=== PATIENT | male | born 1980 | race African-American/Black ===

== ENCOUNTER 2017-09-09 19:01 | Inpatient (IN) | payer OTHER ==
[~2017-09-09] VITALS: Ht 170.2 cm; Wt 70.0 kg
[~2017-09-09 19:01] MED LIST: IBUP-1105 PO; LEVE1TAB57 PO; NCDT21 TD
[2017-09-09 20:25] LABS: INR 1.1 (0.9-1.1); PTT PATIENT 27.7 SECONDS (21.0-31.0)
[2017-09-09 20:34] LABS: ALT/SGPT 34 U/L (12-78); AST/SGOT 20 U/L (15-37); BLOOD UREA NITROGEN 7 mg/dl (7-18); CARBON DIOXIDE 28 mmol/L (21-32); CREATININE 0.83 mg/dl (0.60-1.40); GLUCOSE 88 mg/dl (70-99); POTASSIUM 3.7 mmol/L (3.5-5.1); SODIUM 138 mmol/L (136-145)
[2017-09-09 20:37] LABS: ALKALINE PHOSPHATASE 98 U/L (45-117); TOTAL PROTEIN 7.3 gm/dl (6.4-8.2)
[2017-09-09 20:51] LABS: PHENYTOIN (DILANTIN) 33.6 mcg/mL (10-20)
[2017-09-09 21:08] LABS: BASO % 0.1 %; BASO ABS # 0.01 K/uL (0-0.2); EOS % 1.9 %; EOS ABS # 0.26 K/uL (0-0.5); HEMATOCRIT 41.1 % (42-52); HEMOGLOBIN 14.2 g/dL (14.0-18.0); IG# 0.05 K/uL (0.00-0.02); LYMPH % 16.4 %; LYMPH ABS # 2.25 K/uL (1.2-3.4); MEAN CELL VOLUME 92.2 fL (80-100); MEAN CORPUSCULAR HEMOGLOBIN 31.8 pg (25-34); MEAN CORPUSCULAR HGB CONC 34.5 g/dl (32-36); MEAN PLATELET VOLUME 12.3 fL (7.4-10.4); MONO % 7.9 %; MONO ABS # 1.09 K/uL (0.11-0.59); NEUT % 73.3 %; NEUT ABS # 10.07 K/uL (1.4-6.5); PLATELET COUNT 116 K/uL (130-400); RED CELL DISTRIBUTION WIDTH CV 13.3 % (11.5-14.5); RED CELL DISTRIBUTION WIDTH SD 45.1 fL (36.4-46.3); WHITE BLOOD COUNT 13.73 K/uL (4.8-10.8)
[2017-09-09] MEDS ORDERED: PHEN200C PO (21:36)
[2017-09-09] MEDS ORDERED: ACETAMINOPHEN 325 MG TAB PO PRN (21:45)
[2017-09-09] MEDS ORDERED: ONDANSETRON INJ 2 MG/ML 2 ML VIAL IV PRN (21:45)
--- NOTE | 2017-09-09 21:58 | History and Physical ---
History & Physical Date & Time of Service: Sep 09, 2017 at 21:45 Chief Complaint: Dilantin Overdose ,Palpitation Primary Care Physician: Neo SOSA History of Present Illness Source: patient He is a 36-year-old male WALLY and plantar with history of seizure disorder has been on Dilantin. He was on Keppra before. He does have a few Dilantin and Keppra in disposition. Around 5 PM today he took 4 of Dilantin and 2 of Keppra to keep his seizure under control. Sometimes he takes the medication without the knowledge of his provider. He complained palpitation and funny feeling in the head. From that point he was taken to the emergency room for further evaluation. He was noted to have a Dilantin level of 33.6. He was advised for admission. He denies to have any tremor any ataxia any headache blurred vision or diplopia. Past Medical/Surgical History Medical Problems: (1) Ataxia (2) Dilantin overdose (3) Dilantin toxicity (4) Seizure Family History No pertinent family history Social History Smoking Status: Former Smoker Drug Use: none Housing status: other Allergies Coded Allergies: No Known Allergies (Unverified , 10/05/15) Home Medications Scheduled Phenytoin Sodium Extended (Phenytek), 200 MG PO BID Review of Systems Cardiovascular: + palpitations Neurologic: + problem reported (Funny feeling in hesd) Endocrine: + fatigue Physical Exam Vital Signs Date Time Temp Pulse Resp B/P (MAP) Pulse Ox O2 Delivery O2 Flow Rate FiO2 09/09/17 21:10 76 16 124/84 98 Room Air 09/09/17 20:25 78 09/09/17 19:09 36.9 89 17 140/90 98 Room Air General Appearance: no apparent distress Head: normocephalic Eyes: normal inspection, PERRL, EOMI ENT: normal ENT inspection Neck: supple Respiratory/Chest: chest non-tender, lungs clear Cardiovascular: regular rate, rhythm, no edema Abdomen/GI: normal bowel sounds Genitourinary - Male: normal male genitalia Back: normal inspection Extremities/Musculoskelatal: normal inspection Neurologic/Psych: alert, normal mood/affect, normal reflexes, oriented x 3 Skin: normal color Diagnostics Laboratory Results Results Past 24 Hours Test 09/09/17 20:00 Range/Units White Blood Count 13.73 4.8-10.8 K/uL Red Blood Count 4.46 4.7-6.1 M/uL Hemoglobin 14.2 14.0-18.0 g/dL Hematocrit 41.1 42-52 % Mean Corpuscular Volume 92.2 80-100 fL Mean Corpuscular Hemoglobin 31.8 25-34 pg Mean Corpuscular Hemoglobin Concent 34.5 32-36 g/dl Platelet Count 116 130-400 K/uL Mean Platelet Volume 12.3 7.4-10.4 fL Neutrophils (%) (Auto) 73.3 % Lymphocytes (%) (Auto) 16.4 % Monocytes (%) (Auto) 7.9 % Eosinophils (%) (Auto) 1.9 % Basophils (%) (Auto) 0.1 % Neutrophils # (Auto) 10.07 1.4-6.5 K/uL Lymphocytes # (Auto) 2.25 1.2-3.4 K/uL Monocytes # (Auto) 1.09 0.11-0.59 K/uL Eosinophils # (Auto) 0.26 0-0.5 K/uL Basophils # (Auto) 0.01 0-0.2 K/uL RDW Standard Deviation 45.1 36.4-46.3 fL RDW Coefficient of Variation 13.3 11.5-14.5 % Immature Granulocyte % (Auto) 0.4 % Immature Granulocyte # (Auto) 0.05 0.00-0.02 K/uL Platelet Estimate DECREASED Red Blood Cell Morphology Unremarkable Prothrombin Time 11.2 9.0-12.0 SECONDS Prothromb Time International Ratio 1.1 0.9-1.1 Activated Partial Thromboplast Time 27.7 21.0-31.0 SECONDS Partial Thromboplastin Ratio 1.1 Sodium Level 138 136-145 mmol/L Potassium Level 3.7 3.5-5.1 mmol/L Chloride Level 107 98-107 mmol/L Carbon Dioxide Level 28 21-32 mmol/L Anion Gap 3.0 3-11 mmol/L Blood Urea Nitrogen 7 7-18 mg/dl Creatinine 0.83 0.60-1.40 mg/dl Est Creatinine Clear Calc Drug Dose 112.8 ml/min Estimated GFR () 129.4 Estimated GFR (Non- 111.6 BUN/Creatinine Ratio 8.4 10-20 Random Glucose 88 70-99 mg/dl Calcium Level 9.0 8.5-10.1 mg/dl Total Bilirubin 0.3 0.2-1 mg/dl Direct Bilirubin < 0.1 0-0.2 mg/dl Aspartate Amino Transf (AST/SGOT) 20 15-37 U/L Alanine Aminotransferase (ALT/SGPT) 34 12-78 U/L Alkaline Phosphatase 98 45-117 U/L Total Protein 7.3 6.4-8.2 gm/dl Albumin 4.0 3.4-5.0 gm/dl Salicylates Level 3.6 2.8-20 mg/dl Acetaminophen Level < 2 10-30 ug/ml Phenytoin (Dilantin) Level 33.6 10-20 mcg/mL Normal EKG (SR,70/min,no ST-T changes ,No QT prongation) Impression Assessment and Plan Dilantin overdose: Accidental overdose of Dilantin, He took double the dose of Dilantin and 2000 mg Keppra around 5 PM this afternoon. He is not supposed to take any Keppra but he had few in his position and plan to take it. No specific symptoms of Dilantin toxicity except palpitation Dilantin level was 33.6 and Tylenol level is normal. The [facility] was contacted and advised to have adequate IV fluid and recheck Dilantin every 4-6 hours. Seizure disorder: Has been on Dilantin 200 mg twice daily Was on Keppra before and that was stopped We will hold Dilantin until the level is normalized. DVT prophylaxis with Lovenox CODE STATUS-full In my clinical assessment the beneficiary meets criteria for 2 midnight admission. Resuscitation Status VTE Prophylaxis Will order VTE Prophylaxis: Yes
[2017-09-09] MEDS: ENOXAPARIN 40 MG/0.4 ML SYR SC SCH (22:30)
[2017-09-09 23:31] VITALS: BP 117/76; PULSE 58; TEMP 36.6; O2SAT 99; Ht 170.2 cm; Wt 70.0 kg
[2017-09-09] MEDS: NSS + 20MEQ KCL 1000ML 1,000 ML IV SCH (23:49)
[2017-09-09 23:59] VITALS: BP 116/79; PULSE 75; TEMP 37; O2SAT 99
--- NOTE | 2017-09-10 00:42 | EMERGENCY ROOM VISIT NOTE ---
History Report prepared by Adrienne: Romelia House Under the Supervision of: Dr. Shukri Gibbons M.D. First contact with patient: 19:30 Chief Complaint: OVERDOSE (INTENTIONAL) Stated Complaint: POSSIBLE OVERDOSE History of Present Illness The patient is a 36 year old male who presents to the Emergency Room with complaints of an episode of overdose around 1700 today. The patient comes from [facility]. He is on 2 Dilantin 100 mg and on 1 Keppra 1000 mg. Today, he forgot that he took his medications and took an extra dose. As a result, he took 4 Dilantin and 2 Keppra at 1700 today. He denies taking any other medications. He does not have any other complaints. I did obtain additional history from the from the [facility]. He stated that the patient told him that he took 8 Dilantin and 8 Keppra and so that is why he was sent here for evaluation. He stated that the patient was very contradictory in his statements in terms of timing and the number of pills. Source of History: patient Onset: 1700 Position: other (body) Symptom Intensity: 4 Dilantin, 2 Keppra Quality: other (overdose) Timing: other (episodic) Review of Systems See HPI for pertinent positives & negatives. A total of 10 systems reviewed and were otherwise negative. Past Medical & Surgical Medical Problems: (1) Dilantin overdose (2) Dilantin toxicity (3) Seizure Family History No pertinent family history Social History Smoking Status: Former Smoker Alcohol Use: none Drug Use: none Housing Status: other Current/Historical Medications Scheduled Phenytoin Sodium Extended (Phenytek), 200 MG PO BID Allergies Coded Allergies: No Known Allergies (Unverified , 10/05/15) Physical Exam Vital Signs Date Time Temp Pulse Resp B/P (MAP) Pulse Ox O2 Delivery O2 Flow Rate FiO2 09/09/17 21:10 76 16 124/84 98 Room Air 09/09/17 20:25 78 09/09/17 19:09 36.9 89 17 140/90 98 Room Air Physical Exam Constitutional: Vital signs reviewed. Eyes: Pupils are equal round reactive to light. Conjunctiva are noninjected. No nystagmus. ENT: Pharynx is clear without erythema or exudate. Mucous membranes are moist. Neck supple without meningeal signs. Respiratory: Clear to auscultation bilaterally. Breath sounds are equal bilaterally. Cardiovascular: Regular rate and rhythm. No rubs or gallops. GI: Soft, nondistended and nontender. Bowel sounds are present. Musculoskeletal: No peripheral edema. No lower extremity tenderness. Integumentary: No cyanosis. Neurological: The patient is awake and alert. No focal deficits. Psychiatric: Normal affect. Medical Decision & Procedures Laboratory Results 09/09/17 20:00 Red Blood Count 4.46, Mean Corpuscular Volume 92.2, Mean Corpuscular Hemoglobin 31.8, Mean Corpuscular Hemoglobin Concent 34.5, Mean Platelet Volume 12.3, Neutrophils (%) (Auto) 73.3, Lymphocytes (%) (Auto) 16.4, Monocytes (%) (Auto) 7.9, Eosinophils (%) (Auto) 1.9, Basophils (%) (Auto) 0.1, Neutrophils # (Auto) 10.07, Lymphocytes # (Auto) 2.25, Monocytes # (Auto) 1.09, Eosinophils # (Auto) 0.26, Basophils # (Auto) 0.01 09/09/17 20:00 Test 09/09/17 20:00 White Blood Count 13.73 K/uL (4.8-10.8) Red Blood Count 4.46 M/uL (4.7-6.1) Hemoglobin 14.2 g/dL (14.0-18.0) Hematocrit 41.1 % (42-52) Mean Corpuscular Volume 92.2 fL (80-100) Mean Corpuscular Hemoglobin 31.8 pg (25-34) Mean Corpuscular Hemoglobin Concent 34.5 g/dl (32-36) Platelet Count 116 K/uL (130-400) Mean Platelet Volume 12.3 fL (7.4-10.4) Neutrophils (%) (Auto) 73.3 % Lymphocytes (%) (Auto) 16.4 % Monocytes (%) (Auto) 7.9 % Eosinophils (%) (Auto) 1.9 % Basophils (%) (Auto) 0.1 % Neutrophils # (Auto) 10.07 K/uL (1.4-6.5) Lymphocytes # (Auto) 2.25 K/uL (1.2-3.4) Monocytes # (Auto) 1.09 K/uL (0.11-0.59) Eosinophils # (Auto) 0.26 K/uL (0-0.5) Basophils # (Auto) 0.01 K/uL (0-0.2) RDW Standard Deviation 45.1 fL (36.4-46.3) RDW Coefficient of Variation 13.3 % (11.5-14.5) Immature Granulocyte % (Auto) 0.4 % Immature Granulocyte # (Auto) 0.05 K/uL (0.00-0.02) Platelet Estimate DECREASED Red Blood Cell Morphology Unremarkable Prothrombin Time 11.2 SECONDS (9.0-12.0) Prothromb Time International Ratio 1.1 (0.9-1.1) Activated Partial Thromboplast Time 27.7 SECONDS (21.0-31.0) Partial Thromboplastin Ratio 1.1 Anion Gap 3.0 mmol/L (3-11) Est Creatinine Clear Calc Drug Dose 112.8 ml/min Estimated GFR () 129.4 Estimated GFR (Non- 111.6 BUN/Creatinine Ratio 8.4 (10-20) Calcium Level 9.0 mg/dl (8.5-10.1) Total Bilirubin 0.3 mg/dl (0.2-1) Direct Bilirubin < 0.1 mg/dl (0-0.2) Aspartate Amino Transf (AST/SGOT) 20 U/L (15-37) Alanine Aminotransferase (ALT/SGPT) 34 U/L (12-78) Alkaline Phosphatase 98 U/L (45-117) Total Protein 7.3 gm/dl (6.4-8.2) Albumin 4.0 gm/dl (3.4-5.0) Salicylates Level 3.6 mg/dl (2.8-20) Acetaminophen Level < 2 ug/ml (10-30) Phenytoin (Dilantin) Level 33.6 mcg/mL (10-20) Laboratory results as reviewed by me. ECG Per My Interpretation Indication: toxicologic Rate (beats per minute): 75 Rhythm: normal sinus Findings: other (early repolarization, no PVC, no QT prolongation) ED Course 1932: The patient was evaluated in room B4B. A complete history and physical exam was performed. 1943: I spoke with Wesley from [facility]. He say that the patient stated that he took 8 Dilantin and 8 Keppra and the doctor there was concerned and sent him here. 2099: I reevaluated the patient. He is having no symptoms. He has a little nasal congestion and occasional palpitations. He did have a PVC on the monitor. I reviewed the telemetry summary with the bus driver/monitor and found no abnormalities but PVC. 2109: Poison Control recommends normal saline and hospitalization to check levels every 6 hours. 2114: I discussed the patient's case with Cary Young hospitalkodi. He will evaluate the patient for further management. Medical Decision This is a 37-year-old male who presents with a drug overdose. I did perform a limited focused review of portions of the patient's old chart on the electronic medical record. The patient was admitted September 2015 for Dilantin toxicity. His level was 50 at the time and he had ataxia. I did evaluate the patient as noted above. I did obtain history from patient as well as the [facility]. He took an unknown amount of pills that were prescribed to him including Keppra and Dilantin. He stated that this was a mistake and not a suicide attempt. IV access was established. The patient was placed on a continuous cardiac specialist. I did order and personally review the patient's 12-lead EKG as described above. I did order and review the patient's blood work as noted in the electronic medical record. His phenytoin level is over 33. The case was discussed with poison control. They recommended hospitalization and recheck of his phenytoin levels every 4-6 hours. I did discuss the test results with the patient. He has no symptoms currently. He has no nystagmus. He is not dizzy. He did have a slight palpitation and had a PVC on the monitor. I did review the telemetry strips with the monitor tach and he has had no alarms or any unusual dysrhythmias. I did discuss case with the hospitalist and casework supervisor. Medication Reconcilliation Current Medication List: was personally reviewed by me Blood Pressure Screening Patient's blood pressure: Elevated blood pressure Blood pressure disposition: Referred to PCP Consults Time Called: 2111 Consulting Physician: Cary Young hospitalist Returned Call: 2114 I discussed the patient's case with him. He will evaluate the patient for further management. Impression Primary Impression: Medication overdose Additional Impression: Phenytoin overdose of undetermined intent Scribe Attestation The scribe's documentation has been prepared under my direct and personally reviewed by me in its entirety. I confirm that the note above accurately reflects all work, treatment, procedures, and medical decision making performed by me. Departure Information Dispostion Being Evaluated By Hospitalist Neo Valdes (PCP) Patient Instructions My [facility] Problem Qualifiers Primary Impression: Medication overdose Encounter type: initial encounter Injury intent: undetermined intent Qualified Codes: T50.904A - Poisoning by unspecified drugs, medicaments and biological substances, undetermined, initial encounter Additional Impression: Phenytoin overdose of undetermined intent Encounter type: initial encounter Qualified Codes: T42.0X4A - Poisoning by hydantoin derivatives, undetermined, initial encounter
[2017-09-10 04:00] VITALS: BP 108/73; PULSE 65; TEMP 36.9; O2SAT 97
[2017-09-10] MEDS: NSS + 20MEQ KCL 1000ML 1,000 ML IV SCH ×2 (06:37→14:36)
[2017-09-10 07:30] LABS: HEMATOCRIT 41.8 % (42-52); HEMOGLOBIN 14.2 g/dL (14.0-18.0); MEAN CELL VOLUME 93.9 fL (80-100); MEAN CORPUSCULAR HEMOGLOBIN 31.9 pg (25-34); MEAN PLATELET VOLUME 12.5 fL (7.4-10.4); PLATELET COUNT 127 K/uL (130-400); RED CELL DISTRIBUTION WIDTH CV 13.4 % (11.5-14.5); RED CELL DISTRIBUTION WIDTH SD 45.8 fL (36.4-46.3); WHITE BLOOD COUNT 8.73 K/uL (4.8-10.8)
[2017-09-10 07:41] VITALS: BP 120/74; PULSE 66; TEMP 36.6; O2SAT 100
[2017-09-10 07:53] LABS: CALCIUM 8.6 mg/dl (8.5-10.1); CREATININE 0.77 mg/dl (0.60-1.40); POTASSIUM 3.9 mmol/L (3.5-5.1)
[2017-09-10 11:37] VITALS: BP 120/70; PULSE 64; TEMP 36.8; O2SAT 99
[2017-09-10 15:52] VITALS: BP 99/63; PULSE 65; TEMP 36.9; O2SAT 98
--- NOTE | 2017-09-10 17:41 | Progress Note ---
Internal Med Progress Note Date of Service: Sep 10, 2017. Provider Documentation: SUBJECTIVE: resting comfortably says took extra dilantin as he thought he forgot to take it says in total took about 6-7 tablets extra and then felt funny feeling in the chest currently resting comfortably and hemodynamically stable says about 3 weeks ago he had major seizure after many years and he was stopped on Keppra and whis Dilantin was increased to 200mg bid currently denies chest pain or sob or nausea afebrile OBJECTIVE: Vital Signs-as noted below Exam: General-alert and oriented. Not in distress ENT-normal hearing. Neck-No neck masses Lungs-CTA b/l no wheezing or crackles Heart-S1 and S2 heard regular rate and rhythm no murmurs Abdomen-soft Bowels sounds present non tender no distension Extremities-no edema no erythema Neuro-alert and oriented moves extremities Lab data as noted below. ASSESSMENT & PLAN: Dilantin overdose: Accidental overdose of Dilantin, He took double the dose of Dilantin and 2000 mg Keppra around 5 PM yesterday which was stopped recently but have few in his possession says he felt like having seizure and thought forgot Dilantin and took about 6-7 extra tablets and latter had palpitations Dilantin level was 33.6 on presentation and Tylenol level is normal. Poison Center was contacted and advised to have adequate IV fluid and recheck Dilantin every 4-6 hours as pe h and p will f/u levels. Seizure disorder: currently on Dilantin 200 mg twice daily as per patient Was on Keppra before but was stopped after last seizures 3 weeks ago and Dilantin dose was increased We will hold Dilantin until the level is normalized. DVT prophylaxis with Lovenox DISPOSITION to be determined Vital Signs: Date Time Temp Pulse Resp B/P (MAP) Pulse Ox O2 Delivery O2 Flow Rate FiO2 09/10/17 16:00 Room Air 09/10/17 15:52 36.9 65 20 99/63 (75) 98 Room Air 09/10/17 12:00 Room Air 09/10/17 11:37 36.8 64 18 120/70 (87) 99 Room Air 09/10/17 08:00 Room Air 09/10/17 07:41 36.6 66 18 120/74 (89) 100 Room Air 09/10/17 04:00 Room Air 09/10/17 04:00 36.9 65 16 108/73 (85) 97 Room Air 09/09/17 23:59 Room Air 09/09/17 23:59 37.0 75 18 116/79 (91) 99 Room Air 09/09/17 23:31 36.6 58 18 117/76 99 Room Air 09/09/17 22:06 72 20 131/80 97 09/09/17 21:10 76 16 124/84 98 Room Air 09/09/17 20:25 78 09/09/17 19:09 36.9 89 17 140/90 98 Room Air Lab Results: Results Past 24 Hours Test 09/09/17 20:00 09/10/17 00:57 09/10/17 07:03 Range/Units White Blood Count 13.73 8.73 4.8-10.8 K/uL Red Blood Count 4.46 4.45 4.7-6.1 M/uL Hemoglobin 14.2 14.2 14.0-18.0 g/dL Hematocrit 41.1 41.8 42-52 % Mean Corpuscular Volume 92.2 93.9 80-100 fL Mean Corpuscular Hemoglobin 31.8 31.9 25-34 pg Mean Corpuscular Hemoglobin Concent 34.5 34.0 32-36 g/dl Platelet Count 116 127 130-400 K/uL Mean Platelet Volume 12.3 12.5 7.4-10.4 fL Neutrophils (%) (Auto) 73.3 % Lymphocytes (%) (Auto) 16.4 % Monocytes (%) (Auto) 7.9 % Eosinophils (%) (Auto) 1.9 % Basophils (%) (Auto) 0.1 % Neutrophils # (Auto) 10.07 1.4-6.5 K/uL Lymphocytes # (Auto) 2.25 1.2-3.4 K/uL Monocytes # (Auto) 1.09 0.11-0.59 K/uL Eosinophils # (Auto) 0.26 0-0.5 K/uL Basophils # (Auto) 0.01 0-0.2 K/uL RDW Standard Deviation 45.1 45.8 36.4-46.3 fL RDW Coefficient of Variation 13.3 13.4 11.5-14.5 % Immature Granulocyte % (Auto) 0.4 % Immature Granulocyte # (Auto) 0.05 0.00-0.02 K/uL Platelet Estimate DECREASED Red Blood Cell Morphology Unremarkable Prothrombin Time 11.2 9.0-12.0 SECONDS Prothromb Time International Ratio 1.1 0.9-1.1 Activated Partial Thromboplast Time 27.7 21.0-31.0 SECONDS Partial Thromboplastin Ratio 1.1 Sodium Level 138 141 136-145 mmol/L Potassium Level 3.7 3.9 3.5-5.1 mmol/L Chloride Level 107 108 98-107 mmol/L Carbon Dioxide Level 28 28 21-32 mmol/L Anion Gap 3.0 5.0 3-11 mmol/L Blood Urea Nitrogen 7 6 7-18 mg/dl Creatinine 0.83 0.77 0.60-1.40 mg/dl Est Creatinine Clear Calc Drug Dose 112.8 120.4 ml/min Estimated GFR () 129.4 132.5 Estimated GFR (Non- 111.6 114.3 BUN/Creatinine Ratio 8.4 7.3 10-20 Random Glucose 88 82 70-99 mg/dl Calcium Level 9.0 8.6 8.5-10.1 mg/dl Total Bilirubin 0.3 0.2-1 mg/dl Direct Bilirubin < 0.1 0-0.2 mg/dl Aspartate Amino Transf (AST/SGOT) 20 15-37 U/L Alanine Aminotransferase (ALT/SGPT) 34 12-78 U/L Alkaline Phosphatase 98 45-117 U/L Total Protein 7.3 6.4-8.2 gm/dl Albumin 4.0 3.4-5.0 gm/dl Salicylates Level 3.6 2.8-20 mg/dl Acetaminophen Level < 2 10-30 ug/ml Phenytoin (Dilantin) Level 33.6 24.7 30.7 10-20 mcg/mL Magnesium Level 1.9 1.8-2.4 mg/dl
[2017-09-10] MEDS: SODIUM CHLORIDE 0.9% 1000ML 1,000 ML IV SCH (18:08)
[2017-09-10 18:48] VITALS: BP 120/76; PULSE 66; TEMP 36.8; O2SAT 98
[2017-09-10] MEDS: ENOXAPARIN 40 MG/0.4 ML SYR SC SCH (19:12)
[2017-09-10 23:21] VITALS: BP 125/85; PULSE 60; TEMP 36.4; O2SAT 100
[2017-09-11] VITALS (7 sets, daily range): BP systolic 109–122; BP diastolic 70–74; PULSE 60–74; TEMP 36.6–36.8; O2SAT 97–100
[2017-09-11] MEDS: SODIUM CHLORIDE 0.9% 1000ML 1,000 ML IV SCH ×2 (04:17→13:01)
--- NOTE | 2017-09-11 17:07 | Discharge Instructions ---
Discharge Instructions Date of Service Sep 11, 2017. Admission Reason for Admission: Dilantin Overdose Discharge Discharge Diagnosis / Problem: dilantin overdose Discharge Goals Goal(s): Decrease discomfort, Improve function Activity Recommendations Activity Limitations: resume your previous activity . Instructions / Follow-Up Instructions / Follow-Up FOLLOWUP WITH FAMILY DOCTOR ONE WEEK. LAB: DILANTIN LEVEL ON THURSDAY AND FOLLOW RESULTS WITH FAMILY DOCTOR/NEUROLOGY Current Hospital Diet Patient's current hospital diet: Regular Diet Discharge Diet Recommended Diet: Regular Diet Pending Studies Studies pending at discharge: no Medical Emergencies . Who to Call and When: Medical Emergencies: If at any time you feel your situation is an emergency, please call 911 immediately. . Non-Emergent Contact Non-Emergency issues call your: Primary Care Provider . . "Provider Documentation" section prepared by Aaron Mujica. .
--- NOTE | 2017-09-11 18:24 | Progress Note ---
Internal Med Progress Note Date of Service: Sep 11, 2017. Provider Documentation: SUBJECTIVE: resting comfortably denies any pain 'no sob' no nausea afebrile ok to go back today OBJECTIVE: Vital Signs-as noted below Exam: General-alert and oriented. Not in distress ENT-normal hearing. Neck-No neck masses Lungs-CTA b/l no wheezing or crackles Heart-S1 and S2 heard regular rate and rhythm no murmurs Abdomen-soft Bowels sounds present non tender no distension Extremities-no edema no erythema Neuro-alert and oriented moves extremities Lab data as noted below. ASSESSMENT & PLAN: Dilantin overdose: Accidental overdose of Dilantin, He took double the dose of Dilantin and 2000 mg Keppra around 5 PM yesterday which was stopped recently but have few in his possession says he felt like having seizure and thought forgot Dilantin and took about 6-7 extra tablets and latter had palpitations Dilantin level was 33.6 on presentation and Tylenol level is normal. Poison Center was contacted and advised to have adequate IV fluid and recheck Dilantin every 4-6 hours as per h and p levels at 15:55 today 16.3 advised to continue home Dilantin dose and check levels on Thursday and f/u results with pcp/neurology Seizure disorder: currently on Dilantin 200 mg twice daily as per patient Was on Keppra before but was stopped after last seizures 3 weeks ago and Dilantin dose was increased restarting Dilantin as levels normalized. recheck levels on Thursday and f/u with pcp/neurology discharge Vital Signs: Date Time Temp Pulse Resp B/P (MAP) Pulse Ox O2 Delivery O2 Flow Rate FiO2 09/11/17 17:28 36.7 63 18 98 Room Air 09/11/17 16:00 Room Air 09/11/17 15:30 36.7 63 113/70 (84) 98 Room Air 09/11/17 12:00 99 Room Air 09/11/17 11:30 36.6 60 18 122/74 (90) 100 Room Air 09/11/17 08:00 99 Room Air 09/11/17 07:48 36.8 61 18 109/74 (86) 99 Room Air 09/11/17 04:00 Room Air 09/11/17 03:32 36.6 74 16 110/70 (83) 97 Room Air 09/11/17 00:00 Room Air 09/10/17 23:21 36.4 60 16 125/85 (98) 100 Room Air 09/10/17 20:00 Room Air 09/10/17 18:48 36.8 66 18 120/76 (91) 98 Room Air Lab Results: Results Past 24 Hours Test 09/10/17 20:06 09/11/17 07:55 09/11/17 11:55 09/11/17 15:55 Range/Units Phenytoin (Dilantin) Level 21.6 21.9 20.4 16.3 10-20 mcg/mL
--- NOTE | 2017-09-11 18:26 | Discharge Summary ---
Discharge Summary Date of Service Sep 11, 2017. Discharge Summary Admission Date: Sep 09, 2017 at 21:38 Discharge Date: Sep 11, 2017 Discharge Disposition: Home (CORRECTIONAL FACILITY) Principal Diagnosis: DILANTIN TOXICITY Secondary Diagnoses/Problems: ) Ataxia (2) Dilantin overdose (3) Dilantin toxicity (4) Seizure Medication Reconciliation Continued Medications: Phenytoin Sodium Extended (Phenytek) 200 Mg Cap 200 MG PO BID, CAP Admission Information HPI (per Admitting provider): He is a 36-year-old male WALLY and plantar with history of seizure disorder has been on Dilantin. He was on Keppra before. He does have a few Dilantin and Keppra in disposition. Around 5 PM today he took 4 of Dilantin and 2 of Keppra to keep his seizure under control. Sometimes he takes the medication without the knowledge of his provider. He complained palpitation and funny feeling in the head. From that point he was taken to the emergency room for further evaluation. He was noted to have a Dilantin level of 33.6. He was advised for admission. He denies to have any tremor any ataxia any headache blurred vision or diplopia. Physical Exam (per Admitting): General Appearance: no apparent distress Head: normocephalic Eyes: normal inspection, PERRL, EOMI ENT: normal ENT inspection Neck: supple Respiratory/Chest: chest non-tender, lungs clear Cardiovascular: regular rate, rhythm, no edema Abdomen/GI: normal bowel sounds Genitourinary - Male: normal male genitalia Back: normal inspection Extremities/Musculoskelatal: normal inspection Neurologic/Psych: alert, normal mood/affect, normal reflexes, oriented x 3 Skin: normal color Hospital Course Dilantin overdose: Accidental overdose of Dilantin, He took double the dose of Dilantin and 2000 mg Keppra around 5 PM yesterday which was stopped recently but have few in his possession says he felt like having seizure and thought forgot Dilantin and took about 6-7 extra tablets and latter had palpitations Dilantin level was 33.6 on presentation and Tylenol level is normal. Poison Center was contacted and advised to have adequate IV fluid and recheck Dilantin every 4-6 hours as per h and p levels at 15:55 today 16.3 advised to continue home Dilantin dose and check levels on Thursday and / results with pcp/neurology Seizure disorder: currently on Dilantin 200 mg twice daily as per patient Was on Keppra before but was stopped after last seizures 3 weeks ago and Dilantin dose was increased restarting Dilantin as levels normalized. recheck levels on Thursday and / with pcp/neurology discharge Total time spent on discharge = 35MINUTES This includes examination of the patient, discharge planning, medication reconciliation, and communication with other providers. Discharge Instructions Discharge Instructions Date of Service Sep 11, 2017. Admission Reason for Admission: Dilantin Overdose Discharge Discharge Diagnosis / Problem: dilantin overdose Discharge Goals Goal(s): Decrease discomfort, Improve function Activity Recommendations Activity Limitations: resume your previous activity . Instructions / Follow-Up Instructions / Follow-Up FOLLOWUP WITH FAMILY DOCTOR ONE WEEK. LAB: DILANTIN LEVEL ON THURSDAY AND FOLLOW RESULTS WITH FAMILY DOCTOR/NEUROLOGY Current Hospital Diet Patient's current hospital diet: Regular Diet Discharge Diet Recommended Diet: Regular Diet Pending Studies Studies pending at discharge: no Medical Emergencies . Who to Call and When: Medical Emergencies: If at any time you feel your situation is an emergency, please call 911 immediately. . Non-Emergent Contact Non-Emergency issues call your: Primary Care Provider . . "Provider Documentation" section prepared by Aaron Mujica. .
== END 2017-09-11 19:00 | disposition home or self-care (01) | DRG 918 ==
LOC: C.EDB 19:02 → C.2T 21:38 → EDBEDREQ 21:43 → ENRESERV 21:51
PROVIDERS: ADMIT Internal Medicine; ATTEND Internal Medicine
DX: T42.0X1A Poisoning by hydantoin derivatives, accidental (unintentional), initial encounter (principal); G40.909 Epilepsy, unspecified, not intractable, without status epilepticus; R27.0 Ataxia, unspecified; Z87.891 Personal history of nicotine dependence

== ENCOUNTER 2020-09-27 22:21 | Inpatient (IN) ==
[2020-09-28 00:33] LABS: Eosinophils % (auto) 3.3 %; Hematocrit (blood only) 41.3 % (42-52); Hemoglobin 14.1 g/dL (14.0-18.0); Immature Granulocytes # (auto) 0.02 K/uL (0.00-0.02); Immature Granulocytes % (auto) 0.2 %; Lymphocytes # (auto) 2.36 K/uL (1.2-3.4); Lymphocytes % (auto) 25.8 %; Mean Corpuscular Hemoglobin 30.6 pg (25-34); Mean Corpuscular Hgb Conc 34.1 g/dL (32-36); Mean Corpuscular Volume 89.6 fL (80-100); Mean Platelet Volume 12.1 fL (7.4-10.4); Monocytes # (auto) 0.69 K/uL (0.11-0.59); Monocytes % (auto) 7.5 %; Neutrophils # (auto) 5.79 K/uL (1.4-6.5); Neutrophils % (auto) 63.2 %; Platelet Count 173 K/uL (130-400); RDW Coefficient of Variation 13.4 % (11.5-14.5); RDW Standard Deviation 44.1 fL (36.4-46.3); Red Blood Count 4.61 M/uL (4.7-6.1); White Blood Count 9.16 K/uL (4.8-10.8)
[2020-09-28] MEDS ORDERED: LORazepam 2 MG/ML VIAL (IM USE) ONE (00:34)
[2020-09-28 00:51] LABS: Albumin Level 3.9 gm/dl (3.4-5.0); BUN Creatinine Ratio 10.4 (10-20); Calcium 8.8 mg/dl (8.5-10.1); Creatinine Clr Calc Pharmacy 165.7 ml/min; Est GFR (African American) 136.5; Est GFR (Non-African American) 117.8; Potassium 4.5 mmol/L (3.5-5.1)
[2020-09-28 00:54] LABS: Albumin Globulin Ratio 1.1 (0.9-2); Bilirubin,Total 0.3 mg/dl (0.2-1); Globulin 3.6 gm/dl (2.5-4.0); Total Protein 7.5 gm/dl (6.4-8.2)
[2020-09-28 01:39] LABS: Influenza A virus by PCR Negative (Neg); Influenza B virus by PCR Negative (Neg); RSV by PCR Negative (Neg)
[2020-09-28 01:42] LABS: SARS CoV2 RNA(COVID-19) InHosp POSITIVE (Negative)
--- NOTE | 2020-09-28 02:10 | History & Physical Report ---
Date of Service September 28, 2020 Assessment & Plan (1) Seizure disorder: Seizure disorder/seizure activity- Dilantin level subtherapeutic at 6.4 Continue current dosing of phenytoin sodium extended release 200 mg p.o. twice daily Patient did receive Keppra 2000 mg IV from the ED Placed on Keppra 5 mg IV twice daily Consult neurology Order EEG Present on Admission?: Yes (2) Seizure: See above Present on Admission?: Yes (3) SARS-CoV-2 positive: Patient without symptomatology. He will be placed in a isolation room Present on Admission?: Yes History of Present Illness Chief Complaint: The patient presents to the emergency department from [facility] for evaluation of a seizure. [facility] The patient is a 40-year-old inmate at [facility], with a past medical history including seizure disorder, Dilantin overdose, Dilantin toxicity, who presents to the emergency department with complaint of a seizure. The patient reports he does not member what happened, and ended up waking up on the floor at this time has a mild headache. He denies missing any doses, however, long term staff in attendance in the ED reports that he misses several doses on a regular basis. His last Dilantin level was reportedly low at the long term, but no dosage adjustments were made. Laboratories in the emergency department included the following: Phenytoin level subtherapeutic at 6.4, and COVID-19 screening testing for admission was positive. Allergies Allergy/AdvReac Type Severity Reaction Status Date / Time No Known Allergies Allergy Unverified 09/27/20 23:10 Home Medications Medication Instructions Recorded Confirmed Type phenytoin sodium extended 200 mg PO BID 09/27/20 09/27/20 History Past Med/Surg History Medical History Seizure disorder Social History Smoking Status: Former smoker Smoking End Date: 2018; Hx Alcohol Use: No Hx Substance Use: No Preferred Language: [place] Communication Ability: Effective Security Business Analyst Required: No Beliefs That Will Affect Care: None Current Living Situation: Other Other Information That Helps Us Care for You: No Feels Safe at Home: Yes Assistive Devices: Glasses Review of Systems Review of Systems: The patient denies chest pain, palpitations, shortness of breath, dyspnea on exertion, cough, lower extremity swelling, sore throat, fevers, chills, sweats, fatigue, nausea, vomiting, diarrhea , constipation, abdominal pain, pelvic pain, blood in urine or stool, dysuria, urinary frequency or urgency, rash, abnormal bruising or bleeding, imbalance, focal or generalized weakness, numbness or tingling in arms or legs, generalized arthralgias or myalgias, back or neck pain, or night sweats. The review of systems is otherwise negative other than for that already noted above, and at least 10 systems have been reviewed. Physical Exam Physical Exam: The patient is awake, alert and oriented 3, well developed and well nourished, normocephalic and atraumatic, lying in bed and in no acute distress. HEENT--PERRL, EOMI, mucous membranes and oropharynx dry. Neck--supple. No JVD. No bruits. Thyroid normal, trachea midline, no adenopathy. Heart--normal S1 and S2. No murmurs, rubs or gallops. Lungs--clear bilaterally, no respiratory distress, no accessory muscle use. Abdomen--normal bowel sounds and soft. Nontender. Nondistended, no hernias or masses, no organomegaly. Extremities--no cyanosis or clubbing. No edema. Dermatologic--normal skin turgor, normal color, no abnormal lymph nodes, no rash. Neurologic--cranial nerves II through XII grossly intact. Rheumatologic--normal range of motion. Psychiatric--normal affect. Results & Data Results & Data ([facility]) Vital Signs (Past 12 Hours) Vital Signs Temp Pulse Pulse Resp BP BP Pulse Ox 09/28/20 01:04 82 18 142/84 H 97 09/28/20 00:26 70 18 126/93 98 09/27/20 22:28 99.0 F 79 18 126/93 97 Laboratory Results Laboratory Results WBC 9.16 K/uL (4.8-10.8) 09/28/20 00:13 RBC 4.61 M/uL (4.7-6.1) L 09/28/20 00:13 Hgb 14.1 g/dL (14.0-18.0) 09/28/20 00:13 Hct 41.3 % (42-52) L 09/28/20 00:13 MCV 89.6 fL (80-100) 09/28/20 00:13 MCH 30.6 pg (25-34) 09/28/20 00:13 MCHC 34.1 g/dL (32-36) 09/28/20 00:13 RDW Std Deviation 44.1 fL (36.4-46.3) 09/28/20 00:13 RDW Coeff of Jorge 13.4 % (11.5-14.5) 09/28/20 00:13 Plt Count 173 K/uL (130-400) 09/28/20 00:13 MPV 12.1 fL (7.4-10.4) H 09/28/20 00:13 Immature Gran % (Auto) 0.2 % 09/28/20 00:13 Neut % (Auto) 63.2 % 09/28/20 00:13 Lymph % (Auto) 25.8 % 09/28/20 00:13 [place] % (Auto) 7.5 % 09/28/20 00:13 Eos % (Auto) 3.3 % 09/28/20 00:13 Baso % (Auto) 0.0 % 09/28/20 00:13 Neut # (Auto) 5.79 K/uL (1.4-6.5) 09/28/20 00:13 Lymph # (Auto) 2.36 K/uL (1.2-3.4) 09/28/20 00:13 [place] # (Auto) 0.69 K/uL (0.11-0.59) H 09/28/20 00:13 Eos # (Auto) 0.30 K/uL (0-0.5) 09/28/20 00:13 Baso # (Auto) 0.00 K/uL (0-0.2) 09/28/20 00:13 Immature Gran # (Auto) 0.02 K/uL (0.00-0.02) 09/28/20 00:13 Sodium 139 mmol/L (136-145) 09/28/20 00:13 Potassium 4.5 mmol/L (3.5-5.1) 09/28/20 00:13 Chloride 109 mmol/L (98-107) H 09/28/20 00:13 Carbon Dioxide 28 mmol/L (21-32) 09/28/20 00:13 Anion Gap 2.0 (3-11) L 09/28/20 00:13 BUN 7 mg/dl (7-18) 09/28/20 00:13 Creatinine 0.68 mg/dl (0.6-1.4) 09/28/20 00:13 Est Cr Clr Drug Dosing 165.7 ml/min 09/28/20 00:13 Est GFR ( Amer) 136.5 09/28/20 00:13 Est GFR (Non-Af Amer) 117.8 09/28/20 00:13 BUN/Creatinine Ratio 10.4 (10-20) 09/28/20 00:13 Glucose 94 mg/dl (70-99) 09/28/20 00:13 Calcium 8.8 mg/dl (8.5-10.1) 09/28/20 00:13 Total Bilirubin 0.3 mg/dl (0.2-1) 09/28/20 00:13 AST 21 U/L (15-37) 09/28/20 00:13 ALT 35 U/L (12-78) 09/28/20 00:13 Alkaline Phosphatase 97 U/L (45-117) 09/28/20 00:13 Total Protein 7.5 gm/dl (6.4-8.2) 09/28/20 00:13 Albumin 3.9 gm/dl (3.4-5.0) 09/28/20 00:13 Globulin 3.6 gm/dl (2.5-4.0) 09/28/20 00:13 Albumin/Globulin Ratio 1.1 (0.9-2) 09/28/20 00:13 Urine Color Yellow 09/28/20 05:00 Urine Appearance Clear (Clear) 09/28/20 05:00 Urine pH 6.5 (4.5-7.5) 09/28/20 05:00 Ur Specific [place] 1.013 (1.000-1.030) 09/28/20 05:00 Urine Protein Negative (Negative) 09/28/20 05:00 Urine Glucose (UA) Negative (Negative) 09/28/20 05:00 Urine Ketones Negative (Negative) 09/28/20 05:00 Urine Blood Trace (Negative) H 09/28/20 05:00 Urine Nitrite Negative (Negative) 09/28/20 05:00 Urine Bilirubin Negative (Negative) 09/28/20 05:00 Urine Urobilinogen Negative (Negative) 09/28/20 05:00 Ur Leukocyte Esterase Negative (Negative) 09/28/20 05:00 Urine WBC (Auto) 0 /hpf (0-5) 09/28/20 05:00 Urine RBC (Auto) 0-4 /hpf (0-4) 09/28/20 05:00 U Hyaline Cast (Auto) 0 /lpf (0-5) 09/28/20 05:00 U Epithel Cells (Auto) 0-5 /lpf (0-5) 09/28/20 05:00 Urine Bacteria (Auto) Negative (Negative) 09/28/20 05:00 Phenytoin 6.4 mcg/ml (10-20) L 09/28/20 00:13 COVID-19 Eval Order CovFluRsv at [facility] 09/28/20 00:51 SARS-CoV-2 (PCR) POSITIVE (Negative) A* 09/28/20 00:51 Influenza Type A (PCR) Negative (Neg) 09/28/20 00:51 Influenza Type B (PCR) Negative (Neg) 09/28/20 00:51 RSV (RT-PCR) Negative (Neg) 09/28/20 00:51 Diagnostic Findings [facility] Patient: ANDERSON PROCTOR [id number] (Male) : 76 Status: ER Date: 09/27/20 23:30 Room #: History: SEIZURE, FELL AND HIT HEAD Slices: [id number] Priors: Tech: Luis Moran @ [phone] Exams: CT C SPINE Contrast: Accession Numbers: [id number] Preliminary Findings Only See Final Report For Complete Findings CT C SPINE: No evidence of fracture or malalignment. Radiologist: Bebeto Sommers M.D. Study ready at 23:39 and initial results transmitted at 23:55 *This report constitutes a preliminary interpretation only. Non-acute findings felt to be unrelated to the clinical presentation may not be discussed in this report. The study will be interpreted and a final report will be generated by the local Radiologist the following shift. To reach the hospital radiology department call [phone]. If a discrepancy is found between the preliminary and final interpretations of this study, please notify us via our Client Portal at [email or web address], under [email or web address] [email or web address].You can also fax this report with a description of the discrepancy, or include the final report, to our daytime fax number [phone].If faxing, please indicate the severity of discrepancy using one of the following categories: [ ] 1 - Agree/Informational [ ] 2 - Unlikely to Affect Management [ ] 3 - Possible Eventual Change of Management [ ] 4 - Probable Immediate Change of Management For all other patient related information, please fax us at [phone]. [id number] [facility] Patient: ANDERSON PROCTOR [id number] (Male) : 76 Status: ER Date: 09/27/20 23:40 Room #: History: SEIZURE FELL AND HIT HEAD Slices: 67 Priors: Tech: Luis Moran @ [phone] Exams: CT HEAD Contrast: Accession Numbers: [id number] Preliminary Findings Only See Final Report For Complete Findings CT HEAD: No ICH, mass effect or edema. No evidence of acute cortical stroke. No fracture. Visualized sinuses and mastoid air cells are clear. Radiologist: Bebeto Sommers M.D. Study ready at 23:43 and initial results transmitted at 23:55 *This report constitutes a preliminary interpretation only. Non-acute findings felt to be unrelated to the clinical presentation may not be discussed in this report. The study will be interpreted and a final report will be generated by the local Radiologist the following shift. To reach the hospital radiology department call [phone]. If a discrepancy is found between the preliminary and final interpretations of this study, please notify us via our Client Portal at [email or web address] under [email or web address] [email or web address].You can also fax this report with a description of the discrepancy, or include the final report, to our daytime fax number [phone].If faxing, please indicate the severity of discrepancy using one of the following categories: [ ] 1 - Agree/Informational [ ] 2 - Unlikely to Affect Management [ ] 3 - Possible Eventual Change of Management [ ] 4 - Probable Immediate Change of Management For all other patient related information, please fax us at [phone]. [id number] Code Status & VTE Plan Code Status Full code VTE Prophylaxis Plan VTE Prophylaxis will be ordered: Yes PG Care Time/CCT Total # of Minutes Spent Total Time Spent with Patient: Total time spent is greater than 50% in coordination of care (as documented) at patient's floor/unit and/or counseling patient: Coding Level of Care Code 29549 Initial Inpt Care Lvl 2 Diagnoses Seizure disorder G40.909 Seizure R56.9 SARS-CoV-2 positive U07.1
[2020-09-28] MEDS ORDERED: ONDANSETRON INJ 2 MG/ML 2 ML VIAL IV PRN (04:16)
[2020-09-28] MEDS ORDERED: ACETAMINOPHEN 325 MG TAB PO PRN (04:16)
[2020-09-28] MEDS ORDERED: LORazepam 1 MG/2 ML VIAL IV PRN (04:26)
--- NOTE | 2020-09-28 05:15 | Emergency Department Note ---
History of Present Illness General Chief complaint: Seizure Stated complaint: SEIZURE, FALL, CONTUSION ON HEAD Time Seen by Provider: 09/27/20 22:40 Source: patient and EMS Mode of arrival: EMS Limitations: no limitations History of Present Illness Maximum Pain Intensity: 4 This patient is a 40-year-old male who presents to the emergency department from [facility] for evaluation of a seizure. Patient does not remember what happened. He states that he woke up on the floor and has a headache. He does have a history of seizures and is on Dilantin. He denies missing any recent doses. According to EMS, the senior care reported he had had 6 seizures in the past 2 days. He apparently had 2 seizures tonight. During 1 seizure, he fell and hit his head on the floor. According to the senior care staff, his last Dilantin level was low but his medication dosage was not changed. Seizure activity was tonic-clonic, but they are unsure of the duration. Patient was not incontinent, no tongue biting. They are unsure if there was a postictal period. Patient denies recent illness or fevers. 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 Required: No Beliefs That Will Affect Care: None Current Living Situation: Other Other Information That Helps Us Care for You: No Feels Safe at Home: Yes Assistive Devices: Glasses Review of Systems A total of 10 systems reviewed and were otherwise negative Physical Exam Vital Signs Vital Signs - 24 hr 09/27/20 22:28 09/27/20 22:47 09/28/20 00:26 Temperature 37.2 C Temperature Source Oral Pulse Rate 79 Pulse Rate [Bilateral Radial] 70 Pulse Rhythm [Bilateral Radial] Regular Pulse Strength [Bilateral Radial] Normal Respiratory Rate 18 18 Respiratory Effort / Characteristics Non-Labored Respiratory Depth Normal Normal Respiratory Pattern Regular Blood Pressure 126/93 Blood Pressure [Right Arm] 126/93 Blood Pressure Mean 104 Blood Pressure Mean [Right Arm] 104 Blood Pressure Position Lying Blood Pressure Position [Right Arm] Sitting Pulse Oximetry 97 98 Oxygen Delivery Method Room Air Room Air Room Air Sepsis Recent Fever Within 48 Hours No Sepsis New/Unexplained Change in Mental Status No Sepsis Action Taken by Nursing No Action Required 09/28/20 01:04 Temperature Temperature Source Pulse Rate Pulse Rate [Bilateral Radial] 82 Pulse Rhythm [Bilateral Radial] Regular Pulse Strength [Bilateral Radial] Normal Respiratory Rate 18 Respiratory Effort / Characteristics Non-Labored Respiratory Depth Normal Respiratory Pattern Regular Blood Pressure Blood Pressure [Right Arm] 142/84 H Blood Pressure Mean Blood Pressure Mean [Right Arm] 103 Blood Pressure Position Blood Pressure Position [Right Arm] Lying Pulse Oximetry 97 Oxygen Delivery Method Room Air Sepsis Recent Fever Within 48 Hours Sepsis New/Unexplained Change in Mental Status Sepsis Action Taken by Nursing VITALS: Vitals are noted on the nurse's note and reviewed by myself. GENERAL: This is a 40-year-old male, in no acute distress, well-developed well- nourished. SKIN: Small hematoma to the left frontal scalp. No lacerations or abrasions. HEAD: Normocephalic atraumatic. EARS: External auditory canals clear, tympanic membranes pearly fontenot without erythema or effusion bilaterally. EYES: Pupils equal round and reactive to light and accommodation. Extraocular movements intact. MOUTH: Mucous membranes moist. Tonsils are not enlarged. Pharynx without erythema or exudate. NECK: Supple without nuchal rigidity. No lymphadenopathy. Cervical spine is nontender. HEART: Regular rate and rhythm without murmurs gallops or rubs. LUNGS: Clear to auscultation bilaterally without wheezes, rales or rhonchi. ABDOMEN: Positive bowel sounds x 4. Soft, nontender to palpation. MUSCULOSKELETAL: Full range of motion throughout. Strength 5/5 throughout. NEURO: Patient was alert and oriented to person place and time. No focal neurological deficits. Course Reevaluation(s) Reevaluation #1: I was called to the patient's room by nursing staff and advised that patient was having a seizure. Patient reportedly had a tonic-clonic seizure lasting approximately 90 seconds. On my arrival to the room, patient was postictal. He was given 2 mg Ativan IV and a loading dose of Keppra, 2000 mg IV. Consultations Consultation #1: Dr. Adkins [facility] hospitalist Administered Medications Discontinued Medications Levetiracetam 2,000 mg/ Sodium (Chloride) 270 mls @ 999 mls/hr IV NOW STA Stop: 09/28/20 00:49 Last Infusion: 09/28/20 01:11 Dose: 0 mls/hr Documented by: [id number] Admin: 09/28/20 00:47 Dose: 999 mls/hr Documented by: [id number] Lorazepam (Lorazepam 2 Mg/Ml Vial (Im Use)) Confirm Administered Dose 2 mg .ROUTE .STK-MED ONE Stop: 09/28/20 00:35 Last Admin: 09/28/20 00:38 Dose: 2 mg Documented by: [id number] Medical Decision Making Differential Diagnosis Epilepsy, infection, hypoglycemia, electrolyte abnormalities, cardiac sources, intracerebral event, trauma, toxicologic, neurologic, syncope, as well as other pathologies. Medical Records Attestation: I reviewed the patient's medical records. Home Medications Current Medication List: was personally reviewed by me Laboratory Data Attestation: I reviewed the patient's lab results. Result diagrams: 09/28/20 00:13 09/28/20 00:13 Lab Results 09/28/20 09/28/20 09/28/20 Range/Units 00:13 00:13 00:13 WBC 9.16 (4.8-10.8) K/uL RBC 4.61 L (4.7-6.1) M/uL Hgb 14.1 (14.0-18.0) g/dL Hct 41.3 L (42-52) % MCV 89.6 (80-100) fL MCH 30.6 (25-34) pg MCHC 34.1 (32-36) g/dL RDW Std Deviation 44.1 (36.4-46.3) fL RDW Coeff of Jorge 13.4 (11.5-14.5) % Plt Count 173 (130-400) K/uL MPV 12.1 H (7.4-10.4) fL Immature Gran % (Auto) 0.2 % Neut % (Auto) 63.2 % Lymph % (Auto) 25.8 % [place] % (Auto) 7.5 % Eos % (Auto) 3.3 % Baso % (Auto) 0.0 % Neut # (Auto) 5.79 (1.4-6.5) K/uL Lymph # (Auto) 2.36 (1.2-3.4) K/uL [place] # (Auto) 0.69 H (0.11-0.59) K/uL Eos # (Auto) 0.30 (0-0.5) K/uL Baso # (Auto) 0.00 (0-0.2) K/uL Immature Gran # (Auto) 0.02 (0.00-0.02) K/uL Sodium 139 (136-145) mmol/L Potassium 4.5 (3.5-5.1) mmol/L Chloride 109 H (98-107) mmol/L Carbon Dioxide 28 (21-32) mmol/L Anion Gap 2.0 L (3-11) BUN 7 (7-18) mg/dl Creatinine 0.68 (0.6-1.4) mg/dl Est Cr Clr Drug Dosing 165.7 ml/min Est GFR ( Amer) 136.5 Est GFR (Non-Af Amer) 117.8 BUN/Creatinine Ratio 10.4 (10-20) Glucose 94 (70-99) mg/dl Calcium 8.8 (8.5-10.1) mg/dl Total Bilirubin 0.3 (0.2-1) mg/dl AST 21 (15-37) U/L ALT 35 (12-78) U/L Alkaline Phosphatase 97 (45-117) U/L Total Protein 7.5 (6.4-8.2) gm/dl Albumin 3.9 (3.4-5.0) gm/dl Globulin 3.6 (2.5-4.0) gm/dl Albumin/Globulin Ratio 1.1 (0.9-2) Phenytoin 6.4 L (10-20) mcg/ml COVID-19 Eval Order SARS-CoV-2 (PCR) (Negative) Influenza Type A (PCR) (Neg) Influenza Type B (PCR) (Neg) RSV (RT-PCR) (Neg) 09/28/20 09/28/20 Range/Units 00:51 00:51 WBC (4.8-10.8) K/uL RBC (4.7-6.1) M/uL Hgb (14.0-18.0) g/dL Hct (42-52) % MCV (80-100) fL MCH (25-34) pg MCHC (32-36) g/dL RDW Std Deviation (36.4-46.3) fL RDW Coeff of Jorge (11.5-14.5) % Plt Count (130-400) K/uL MPV (7.4-10.4) fL Immature Gran % (Auto) % Neut % (Auto) % Lymph % (Auto) % [place] % (Auto) % Eos % (Auto) % Baso % (Auto) % Neut # (Auto) (1.4-6.5) K/uL Lymph # (Auto) (1.2-3.4) K/uL [place] # (Auto) (0.11-0.59) K/uL Eos # (Auto) (0-0.5) K/uL Baso # (Auto) (0-0.2) K/uL Immature Gran # (Auto) (0.00-0.02) K/uL Sodium (136-145) mmol/L Potassium (3.5-5.1) mmol/L Chloride (98-107) mmol/L Carbon Dioxide (21-32) mmol/L Anion Gap (3-11) BUN (7-18) mg/dl Creatinine (0.6-1.4) mg/dl Est Cr Clr Drug Dosing ml/min Est GFR ( Amer) Est GFR (Non-Af Amer) BUN/Creatinine Ratio (10-20) Glucose (70-99) mg/dl Calcium (8.5-10.1) mg/dl Total Bilirubin (0.2-1) mg/dl AST (15-37) U/L ALT (12-78) U/L Alkaline Phosphatase (45-117) U/L Total Protein (6.4-8.2) gm/dl Albumin (3.4-5.0) gm/dl Globulin (2.5-4.0) gm/dl Albumin/Globulin Ratio (0.9-2) Phenytoin (10-20) mcg/ml COVID-19 Eval Order CovFluRsv at [facility] SARS-CoV-2 (PCR) POSITIVE A* (Negative) Influenza Type A (PCR) Negative (Neg) Influenza Type B (PCR) Negative (Neg) RSV (RT-PCR) Negative (Neg) Imaging Data Attestation: I personally reviewed and interpreted this imaging study as follows: Radiologist's Impression: CT HEAD: No ICH, mass effect or edema. No evidence of acute cortical stroke. No fracture. Visualized sinuses and mastoid air cells are clear. CT C SPINE: No evidence of fracture or malalignment. Radiologist: Bebeto Sommers M.D. ECG Data Attestation: I personally reviewed and interpreted this ECG as follows: Indication: + other (seizure) Rate (beats per minute): 79 Rhythm: + normal sinus ECG [place]: + Normal ECG ST segments: + repolarization abnormalities (early repolarization) Change: no significant change MDM Narrative Continuous grey roll worker: Order was placed for continuous grey roll worker. Patient was placed on the grey roll worker. Patient was noted to be in normal sinus rhythm at an initial rate of 80 bpm. The patient is a 40-year-old male who presents today for evaluation of a seizure. Labs revealed no leukocytosis, anemia or concerning electrolyte abnormalities. Dilantin level was found to be low. CT of the head/C-spine performed due to injury and were negative. Patient was actually found to be COVID-19 positive. He does not have any report of COVID-19 symptoms. Per senior care staff, patient reportedly has had several seizures in the past 2 days. He did have seizure activity here which was witnessed by myself. He was treated with benzodiazepines and a loading dose of Keppra. The case was discussed with the hospitalist service, who agreed to evaluate the patient for further care. Impression & Plan Seizure, SARS-CoV-2 positive Discharge Plan Visit Data Chief Complaint: Seizure Stated Complaint: SEIZURE, FALL, CONTUSION ON HEAD ED Provider: Lincoln Martinez ED Midlevel Provider: Viki Marquez Discharge Problem: Seizure, SARS-CoV-2 positive Patient Disposition: Admitted As Inpatient
[2020-09-28 05:27] LABS: Appearance Urine Clear (Clear); Bacteria Urine Automated Negative (Negative); Bilirubin Urine Negative (Negative); Blood Urine Trace (Negative); Cast Urine Automated 0 /lpf (0-5); Color Urine Yellow; Epithelial Cell Urine Auto 0-5 /lpf (0-5); Glucose Urine UA Negative (Negative); Ketones Urine Negative (Negative); Leukocyte Esterase Urine Negative (Negative); Nitrite Urine Negative (Negative); Protein Urine Negative (Negative); RBC Urine Automated 0-4 /hpf (0-4); Specific Gravity Urine 1.013 (1.000-1.030); Urobilinogen Urine Negative (Negative); WBC Urine Automated 0 /hpf (0-5); pH Urine 6.5 (4.5-7.5)
--- NOTE | 2020-09-28 06:48 | CT Scan Report ---
CT OF THE HEAD WITHOUT CONTRAST CLINICAL HISTORY: seizure, head injury COMPARISON STUDY: MRI of the brain October 06, 2015. TECHNIQUE: Helical axial images of the head were obtained without IV contrast. Automated exposure con trol was utilized for the study. A dose lowering technique was utilized adhering to the principles o f ALARA. FINDINGS: No acute intracranial hemorrhage, midline shift or mass effect is present. The ventricular system is unremarkable. The basal cisterns are patent. No extra-axial collections are present. There are no findings to suggest acute dural sinus thrombosis or acute territorial infarct. No significant calvarial abnormalities are present. Visualized portions of the sinuses and mastoid air cells are raymond ar. IMPRESSION: 1. No acute intracranial findings. 2. No calvarial fracture. ACT 112: Negative or not required by law. Electronically signed by: Mik Nassar M.D. 09/28/2020 6:46 AM
--- NOTE | 2020-09-28 06:50 | CT Scan Report ---
CT OF THE CERVICAL SPINE WITHOUT CONTRAST CLINICAL HISTORY: seizure, head injury COMPARISON STUDY: No previous studies for comparison. TECHNIQUE: Helical axial images of the cervical spine were obtained without IV contrast. Sagittal a nd coronal reconstructions were viewed. Automated exposure control was utilized for the study. A do se lowering technique was utilized adhering to the principles of ALARA. FINDINGS: There is reversal of the normal cervical lordosis. Vertebral body heights are maintained. N o acute cervical spine fracture or subluxation is present. There is no prevertebral edema. Facet join ts are intact. There is mild multilevel disc space narrowing and endplate osteophytosis. IMPRESSION: No acute cervical spine fracture or subluxation. ACT 112: Negative or not required by law. Electronically signed by: Mik Nassar M.D. 09/28/2020 6:48 AM
[2020-09-28] MEDS: PHENYTOIN SODIUM ER 100 MG CAP PO SCH ×2 (08:46→20:51)
[2020-09-28] MEDS: levETIRAcetam 500 MG in 0.9 % SODIUM CHLORIDE 100 ML IV SCH ×2 (08:46→08:53)
--- NOTE | 2020-09-28 13:02 | Electrocardiogram Report ---
Test Reason : Blood Pressure : / mmHG Vent. Rate : 079 BPM Atrial Rate : 079 BPM P-R Int : 144 ms QRS Dur : 086 ms QT Int : 348 ms P-R-T Axes : 066 069 048 degrees QTc Int : 399 ms Poor data quality, interpretation may be adversely affected Normal sinus rhythm Early repolarization Normal ECG When compared with ECG of 10-SEP-2017 06:31, No significant change was found Confirmed by Ravindra Crowley ([id number]) on 09/28/2020 1:02:28 PM Referred By: Neo SOSA Confirmed By:Ravindra Crowley
--- NOTE | 2020-09-28 13:31 | Electrocardiogram Report ---
Test Reason : Blood Pressure : / mmHG Vent. Rate : 077 BPM Atrial Rate : 077 BPM P-R Int : 148 ms QRS Dur : 092 ms QT Int : 368 ms P-R-T Axes : 079 079 047 degrees QTc Int : 416 ms Normal sinus rhythm Moderate voltage criteria for LVH, may be normal variant Early repolarization Borderline ECG When compared with ECG of 27-SEP-2020 22:28, (unconfirmed) No significant change was found Confirmed by Ravindra Crowley ([id number]) on 09/28/2020 1:31:07 PM Referred By: Neo [facility] Confirmed By:Ravindra Crowley
--- NOTE | 2020-09-28 14:03 | Neurology Consultation ---
Date of Consultation September 28, 2020 Assessment & Plan (1) Seizure: Te Olsen is a 40 yo man w/ PMH of seizures who p/t [facility] after having multiple breakthrough seizures in the last few days in the setting of known low dilantin levels. # Breakthrough seizures: in the setting of subtherapeutic Dilantin level and Covid, possibly missed doses of medication - would increase keppra to 1250mg bid - given potential for significant side effects with long-term Dilantin use, recommend weaning down slowly but this should be done as an outpatient (could start the decrease here by changing to 150mg qAM/200mg qPM and then decrease slowly by 50mg increments every 2 weeks until off eg. 150mg bid in 2 weeks, then 100mg/150mg etc) - continue seizure precautions, ativan 1mg prn for seizure lasting longer than 5 minutes or more than 2 seizures without return to baseline Thank you for this interesting consult. Plan of care discussed with primary team. Please call or text with questions. (2) SARS-CoV-2 positive: History of Present Illness Attending Physician: Parish Watt, DO History of Present Illness Te Olsen is a 40 yo man w/ PMH of seizures who p/t [facility] after having multiple breakthrough seizures in the last few days in the setting of known low dilantin levels. In the ED, he was afebrile, BP 126/93, heart rate 79, respiratory rate 18, satting 97% room air. Labs notable for WBC 9.6, hemoglobin 14.1, platelets 173, sodium 139, potassium 4.5, creatinine 0.68, glucose 94, gap low at 2, normal GFR, calcium 8.8, LFTs within normal, phenytoin level low at 6.4, Covid positive. Imaging independently reviewed. CT head shows no hemorrhage or hypodensities. It does appear that he had MRI brain in September 2015 which was also reviewed and shows possible right temporal sclerosis but no other significant abnormality. Received 2g keppra load in the ED and started on keppra 500mg bid. On evaluation today, he reports that he was in the [facility] and recalls waking up on the floor. Unclear as to details of event. Notes that seizures happen when BP is too high or too low. Reports is he is compliant with medications, only one seizure every 6 months or so. He notes that he has been missing a lot of doses recently and has had several seizures in the last few weeks. Does note that he does use marijuana occasionally (was concerned about interaction between marijuana and AED side effects). Current AEDs: dilantin ER 200mg bid Prior AEDs: keppra (unclear why he came off), depakote (high BP) Seizure frequency: 1 q6 months to weekly (depending on compliance) Seizure description: occasional aura of lightheadedness -> generalized shaking not associated with loss of bowel or bladder, has bitten tongue in the past -> post-ictal for several minutes before returning to baseline Allergies Allergy/AdvReac Type Severity Reaction Status Date / Time No Known Allergies Allergy Unverified 09/27/20 23:10 Home Medications Medication Instructions Recorded Confirmed Type phenytoin sodium extended 200 mg PO BID 09/27/20 09/27/20 History Patient History Medical History Seizure disorder Social History Smoking Status: Former smoker Smoking End Date: 2018; Hx Alcohol Use: No Hx Substance Use: No Preferred Language: Yakut Communication Ability: Effective Regulator Tester Required: No Beliefs That Will Affect Care: None Current Living Situation: Other Other Information That Helps Us Care for You: No Feels Safe at Home: Yes Assistive Devices: None Review of Systems Review of Systems: 14 point review of systems completed and negative except as in HPI. Exam (Neuro) Physical Exam: General Exam: GEN: NAD, sitting in chair. HEENT: No conjunctival injection, no rhinorrhea. CV: RRR, no peripheral edema PULM: Nonlabored respirations on room air. Neuro Exam: (exam per primary team as pt is in the COVID unit) MS: Awake and Alert. Oriented to person, place, and date. Speech fluent and appropriate without dysarthria or paraphasic errors. Language intact including naming, comprehension, repetition. Cognition and memory grossly intact. Attention intact. No neglect. CN: Visual bender full. No extinction to double simultaneous stimuli. EOMI wi thout nystagmus. Facial sensation intact to LT. Facial muscles full and symmetric. Hearing intact to conversation. Shoulder shrug normal. MOTOR: Normal bulk and tone. No pronator drift. BUE strength 5/5 at deltoids, biceps, triceps, wrist flexors and extensors, and hand grasp bilaterally. BLE strength 5/5 at iliopsoas, hamstrings, quadriceps, tibialis anterior, and gastrocnemius bilaterally. SENSORY: Intact to LT without extinction to double simultaneous stimuli. COORDINATION: No dysmetria or ataxia on [id number] bilaterally. Normal Franki bilaterally. GAIT: Normal gait and arm swing. Results & Data ([facility]) Vital Signs (Past 12 Hours) Vital Signs Temp Pulse Pulse Pulse Resp BP Pulse Ox 09/28/20 11:17 36.3 C L 72 20 103/64 98 09/28/20 07:45 72 09/28/20 07:39 37.0 C 95 H 22 119/83 97 09/28/20 04:16 09/28/20 04:12 37 C 68 20 132/99 98 09/28/20 03:14 74 18 112/80 98 Pulse Ox 09/28/20 11:17 09/28/20 07:45 09/28/20 07:39 09/28/20 04:16 98 09/28/20 04:12 09/28/20 03:14 PG Care Time/CCT Total # of Minutes Spent Total Time Spent with Patient: Total time spent is greater than 50% in coordination of care (as documented) at patient's floor/unit and/or counseling patient: Coding Level of Care Code 72862 Office/Outpt Visit, New Diagnoses Seizure R56.9 SARS-CoV-2 positive U07.1
[2020-09-28] MEDS ORDERED: levETIRAcetam 750 MG in 0.9 % SODIUM CHLORIDE 100 ML IV STA (15:42)
--- NOTE | 2020-09-28 15:51 | Hospitalist Progress Note ---
Date of Service September 28, 2020 Assessment & Plan (1) Seizure disorder: Seizure disorder/seizure activity- Dilantin level subtherapeutic at 6.4 he admits that he does not take his Dilantin as prescribed, misses doses due to side effects will place on Keppra 1250mg IV BID, load with Keppra plan to wean off of Dilantin and can stop Dilantin outpatient once Keppra is therapeutic EEG done Dr. Blackmon following plan to keep him here tonight and tomorrow night to make sure he stays stable (2) Seizure: See above (3) SARS-CoV-2 positive: he says he had the Grabiel and Grabiel vaccine two weeks ago stable on room air, no dyspnea, no cough, no fever likely that the vaccine helped Admission and Anticipated Discharge Date Admission Date: September 28, 2020 Subjective patient doing okay today, no further seizure activity he has no recollection of what happened yesterday, does not recall falling out of top bunk, having seizure in the ED he was loaded with Keppra 2000mg IV and given Ativan IV EEG done today discussed with Dr. Blackmon, she would like to use Keppra going further, wean off of Dilantin due to correction adverse effects the patient admits to me that he does not always take his Dilantin due to side effects he has skipped doses which makes sense since his levels were low initially he said that the Keppra made him feel weird, like he was "high all the time" but then I mentioned Depakote as an option and he told me that he thinks it was the Depakote that made him feel weird willing to take Keppra, Dr. Blackmon wants him on 1250mg IV BID, he refused the dose this morning will give him 750mg IV now and then start the 1250mg IV this evening he is eating okay discussed his COVID + test, he said he had the Grabiel and Grabiel vaccine two weeks ago, he says he has no symptoms of COVID he is breathing room air comfortably Review of Systems Review of Systems: All systems reviewed & are unremarkable except as noted in Subjective Physical Exam Constitutional: WD/WN, vitals as above Neck: trachea midline, no thyromegaly Respiratory: normal respiratory effort, lungs clear to auscultation Cardiovascular: RRR, no murmur, no edema Gastrointestinal (Abdomen): normal bowel sounds, soft, nontender, no hepatosplenomegaly Musculoskeletal: no cyanosis or clubbing, extremities motor strength 5/5 Skin: no rashes, warm and dry Neurologic: patellar DTR's 2+ bilat, sensation intact and PERRL, EOMI, accommodation nl, no face palsy, no dysarthria Psychiatric: A+Ox3, euthymic affect Lymphatic: no cervical or axillary lymphadenopathy Results & Data Results & Data ([facility]) Vital Signs (Past 12 Hours) Vital Signs Temp Pulse Pulse Resp BP Pulse Ox Pulse Ox 09/28/20 15:29 77 20 111/77 98 09/28/20 11:17 36.3 C L 72 20 103/64 98 09/28/20 07:45 72 09/28/20 07:39 37.0 C 95 H 22 119/83 97 09/28/20 04:16 98 09/28/20 04:12 37 C 68 20 132/99 98 Laboratory Results Laboratory Results - last 24 hr 09/28/20 09/28/20 09/28/20 00:13 00:13 00:13 WBC 9.16 RBC 4.61 L Hgb 14.1 Hct 41.3 L MCV 89.6 MCH 30.6 MCHC 34.1 RDW Std Deviation 44.1 RDW Coeff of Jorge 13.4 Plt Count 173 MPV 12.1 H Immature Gran % (Auto) 0.2 Neut % (Auto) 63.2 Lymph % (Auto) 25.8 Ceiba % (Auto) 7.5 Eos % (Auto) 3.3 Baso % (Auto) 0.0 Neut # (Auto) 5.79 Lymph # (Auto) 2.36 Ceiba # (Auto) 0.69 H Eos # (Auto) 0.30 Baso # (Auto) 0.00 Immature Gran # (Auto) 0.02 Sodium 139 Potassium 4.5 Chloride 109 H Carbon Dioxide 28 Anion Gap 2.0 L BUN 7 Creatinine 0.68 Est Cr Clr Drug Dosing 165.7 Est GFR ( Amer) 136.5 Est GFR (Non-Af Amer) 117.8 BUN/Creatinine Ratio 10.4 Glucose 94 Calcium 8.8 Total Bilirubin 0.3 AST 21 ALT 35 Alkaline Phosphatase 97 Total Protein 7.5 Albumin 3.9 Globulin 3.6 Albumin/Globulin Ratio 1.1 Urine Color Urine Appearance Urine pH Ur Specific Granville Urine Protein Urine Glucose (UA) Urine Ketones Urine Blood Urine Nitrite Urine Bilirubin Urine Urobilinogen Ur Leukocyte Esterase Urine WBC (Auto) Urine RBC (Auto) U Hyaline Cast (Auto) U Epithel Cells (Auto) Urine Bacteria (Auto) Phenytoin 6.4 L COVID-19 Eval Order SARS-CoV-2 (PCR) Influenza Type A (PCR) Influenza Type B (PCR) RSV (RT-PCR) 09/28/20 09/28/20 09/28/20 00:51 00:51 05:00 WBC RBC Hgb Hct MCV MCH MCHC RDW Std Deviation RDW Coeff of Jorge Plt Count MPV Immature Gran % (Auto) Neut % (Auto) Lymph % (Auto) Ceiba % (Auto) Eos % (Auto) Baso % (Auto) Neut # (Auto) Lymph # (Auto) Ceiba # (Auto) Eos # (Auto) Baso # (Auto) Immature Gran # (Auto) Sodium Potassium Chloride Carbon Dioxide Anion Gap BUN Creatinine Est Cr Clr Drug Dosing Est GFR ( Amer) Est GFR (Non-Af Amer) BUN/Creatinine Ratio Glucose Calcium Total Bilirubin AST ALT Alkaline Phosphatase Total Protein Albumin Globulin Albumin/Globulin Ratio Urine Color Yellow Urine Appearance Clear Urine pH 6.5 Ur Specific [place] 1.013 Urine Protein Negative Urine Glucose (UA) Negative Urine Ketones Negative Urine Blood Trace H Urine Nitrite Negative Urine Bilirubin Negative Urine Urobilinogen Negative Ur Leukocyte Esterase Negative Urine WBC (Auto) 0 Urine RBC (Auto) 0-4 U Hyaline Cast (Auto) 0 U Epithel Cells (Auto) 0-5 Urine Bacteria (Auto) Negative Phenytoin COVID-19 Eval Order CovFluRsv at [facility] SARS-CoV-2 (PCR) POSITIVE A* Influenza Type A (PCR) Negative Influenza Type B (PCR) Negative RSV (RT-PCR) Negative Medications Administered Current Inpatient Medications Acetaminophen (Acetaminophen 325 Mg Tab) 650 mg PO Q4H PRN PRN Reason: Pain or Fever Stop: 10/28/20 04:15 Lorazepam (Ativan) 1 mg in 2 mls @ 0.5 mls/min IV UD PRN PRN Reason: Seizure activity Stop: 10/28/20 04:25 Levetiracetam 750 mg/ Sodium (Chloride) 107.5 mls @ 440 mls/hr IV NOW STA Stop: 09/28/20 15:56 Levetiracetam 1,250 mg/ Sodium (Chloride) 112.5 mls @ 420 mls/hr IV Q12H ABIGAIL Stop: 10/28/20 20:59 Ondansetron HCl (Ondansetron Inj 2 Mg/Ml 2 Ml Vial) 4 mg IV Q6H PRN PRN Reason: Nausea Stop: 10/28/20 04:15 Phenytoin Sodium (Phenytoin Sodium Er 100 Mg Cap) 200 mg PO BID ABIGAIL Stop: 10/28/20 08:59 Last Admin: 09/28/20 08:46 Dose: 200 mg Documented by: PG Care Time/CCT Total # of Minutes Spent Total Time Spent with Patient: Total time spent is greater than 50% in coordination of care (as documented) at patient's floor/unit and/or counseling patient: Coding Level of Care Code 69432 Subseq Hosp Care Lvl 2 Diagnoses Seizure disorder G40.909 Seizure R56.9 SARS-CoV-2 positive U07.1
[2020-09-28] MEDS: levETIRAcetam 1,250 MG in 0.9 % SODIUM CHLORIDE 100 ML IV SCH (20:51)
[2020-09-29] MEDS: PHENYTOIN SODIUM ER 100 MG CAP PO SCH (08:42)
[2020-09-29] MEDS: levETIRAcetam 1,250 MG in 0.9 % SODIUM CHLORIDE 100 ML IV SCH (08:42)
--- NOTE | 2020-09-29 10:37 | Neurology Progress Note ---
Date of Service September 29, 2020 Assessment & Plan (1) Seizure: Te Olsen is a 40 yo man w/ PMH of seizures who p/t [facility] after having multiple breakthrough seizures in the last few days in the setting of known low dilantin levels. # Breakthrough seizures: in the setting of subtherapeutic Dilantin level and Covid, possibly missed doses of medication - continue keppra 1250mg bid - given potential for significant side effects with long-term Dilantin use, recommend weaning down slowly but this should be done as an outpatient (could start the decrease here by changing to 100mg tonight (09/29), then 300mg qhs for 2 weeks, then 200mg qhs for 2 weeks, then 100mg qhs for 2 weeks, then stop) - continue seizure precautions, ativan 1mg prn for seizure lasting longer than 5 minutes or more than 2 seizures without return to baseline - would check keppra level prior to discharge to ensure therapeutic range - follow up with neurology in 6-8 weeks with SARMAD Lester Thank you for this interesting consult. Plan of care discussed with primary team. Please call or text with questions. (2) SARS-CoV-2 positive: Admission and Anticipated Discharge Date Admission Date: September 28, 2020 Subjective NAEs overnight. This morning, he reports that he is doing alright. Discussed other alternatives to keppra including depakote and topamax, he decided to continue with keppra. Review of Systems Review of Systems: 10 point review of systems completed and negative except as in HPI. Results & Data ([facility]) Vital Signs (Past 12 Hours) Vital Signs Temp Pulse Pulse Resp BP Pulse Ox 09/29/20 07:17 67 09/29/20 07:08 79 20 108/74 100 09/29/20 03:14 37.0 C 62 20 129/78 95 09/28/20 23:00 36.9 C 72 20 126/83 98 Exam (Neuro) Physical Exam: General Exam: GEN: NAD, sitting in chair. HEENT: No conjunctival injection, no rhinorrhea. CV: RRR, no peripheral edema PULM: Nonlabored respirations on room air. Neuro Exam: (exam per primary team as pt is in the COVID unit and via phone for what can be tested that way) MS: Awake and Alert. Oriented to person, place, and date. Speech fluent and appropriate without dysarthria or paraphasic errors. Language intact including naming, comprehension, repetition. Cognition and memory grossly intact. Attention intact. No neglect. CN: Visual bender full. Facial muscles full and symmetric. Hearing intact to conversation. Shoulder shrug normal. MOTOR: All extremities antigravity GAIT: Normal gait and arm swing. PG Care Time/CCT Total # of Minutes Spent Total Time Spent with Patient: Total time spent is greater than 50% in coordination of care (as documented) at patient's floor/unit and/or counseling patient: Coding Level of Care Code 77716 Subseq Hosp Care Lvl 2 Diagnoses Seizure R56.9 SARS-CoV-2 positive U07.1
--- NOTE | 2020-09-29 11:15 | Hospitalist Progress Note ---
Date of Service September 29, 2020 Assessment & Plan (1) Seizure disorder: Seizure disorder/seizure activity- Dilantin level subtherapeutic at 6.4 he admits that he does not take his Dilantin as prescribed, misses doses due to side effects will place on Keppra 1250mg IV BID, load with Keppra change to Keppra 1250mg PO BID check Keppra level in morning will wean off Dilantin 300mg HS x 1 week, 200mg HS x 1 week then 100mg HS x 1 week then stop EEG done Dr. Blackmon following plan to keep him here tonight to make sure he remains stable on Keppra, go back to [facility] tomorrow confirmed that they can accept him tomorrow (2) Seizure: See above (3) SARS-CoV-2 positive: he says he had the Grabiel and Grabiel vaccine two weeks ago stable on room air, no dyspnea, no cough, no fever likely that the vaccine helped Admission and Anticipated Discharge Date Admission Date: September 28, 2020 Subjective no seizure activity he is eating fine, no chest pain, no dyspnea says he feels a little off with the Keppra, but we will continue for now discussed plan with Dr. Blackmon, appreciate her input and plan for Dilantin taper will call [facility] to make sure they have Keppra in formulary for likely discharge tomorrow [facility] can take the patient back tomorrow Review of Systems Review of Systems: All systems reviewed & are unremarkable except as noted in Subjective Neurologic: no seizure-like activity Physical Exam Constitutional: WD/WN, vitals as above Neck: trachea midline, no thyromegaly Respiratory: normal respiratory effort, lungs clear to auscultation Cardiovascular: RRR, no murmur, no edema Gastrointestinal (Abdomen): normal bowel sounds, soft, nontender, no hepatosplenomegaly Musculoskeletal: no cyanosis or clubbing, extremities motor strength 5/5 Skin: no rashes, warm and dry Neurologic: patellar DTR's 2+ bilat, sensation intact and PERRL, EOMI, accommodation nl, no face palsy, no dysarthria Psychiatric: A+Ox3, euthymic affect Lymphatic: no cervical or axillary lymphadenopathy Results & Data Results & Data ([facility]) Vital Signs (Past 12 Hours) Vital Signs Temp Pulse Pulse Resp BP Pulse Ox 09/29/20 07:17 67 05/01/21 07:08 79 20 108/74 100 09/29/20 03:14 37.0 C 62 20 129/78 95 Medications Administered Current Inpatient Medications Acetaminophen (Acetaminophen 325 Mg Tab) 650 mg PO Q4H PRN PRN Reason: Pain or Fever Stop: 10/28/20 04:15 Lorazepam (Ativan) 1 mg in 2 mls @ 0.5 mls/min IV UD PRN PRN Reason: Seizure activity Stop: 10/28/20 04:25 Levetiracetam (Levetiracetam 250 Mg Tab) 1,250 mg PO BID ABIGAIL Stop: 10/29/20 20:59 Ondansetron HCl (Ondansetron Inj 2 Mg/Ml 2 Ml Vial) 4 mg IV Q6H PRN PRN Reason: Nausea Stop: 10/28/20 04:15 Phenytoin Sodium (Phenytoin Sodium Er 100 Mg Cap) 300 mg PO QPM ABIGAIL Stop: 10/30/20 20:59 Phenytoin Sodium (Phenytoin Sodium Er 100 Mg Cap) 100 mg PO QPM ONE Stop: 09/29/20 21:01 PG Care Time/CCT Total # of Minutes Spent Total Time Spent with Patient: Total time spent is greater than 50% in coordination of care (as documented) at patient's floor/unit and/or counseling patient: Coding Level of Care Code 01470 Subseq Hosp Care Lvl 2 Diagnoses Seizure disorder G40.909 Seizure R56.9 SARS-CoV-2 positive U07.1
--- NOTE | 2020-09-29 12:40 | Electroencephalogram ---
EEG Procedure Note Date of Service September 29, 2020 Start / End Times Start Time: 12:03 End Time: 12:23 Referring Physician hospitalist History breakthrough seizures Home Medication List Medication Instructions Recorded Confirmed Type phenytoin sodium extended 200 mg PO BID 09/27/20 09/27/20 History Inpatient Medication List Discontinued Medications Levetiracetam 2,000 mg/ Sodium (Chloride) 270 mls @ 999 mls/hr IV NOW STA Stop: 09/28/20 00:49 Last Infusion: 09/28/20 01:11 Dose: 0 mls/hr Documented by: [id number] Admin: 09/28/20 00:47 Dose: 999 mls/hr Documented by: [id number] Levetiracetam 500 mg/ Sodium (Chloride) 105 mls @ 420 mls/hr IV Q12H ABIGAIL Stop: 10/28/20 08:59 Last Admin: 09/28/20 08:53 Dose: Not Given Documented by: [id number] Levetiracetam 750 mg/ Sodium (Chloride) 107.5 mls @ 440 mls/hr IV NOW STA Stop: 09/28/20 15:56 Last Infusion: 09/28/20 16:16 Dose: 0 mls/hr Documented by: [id number] Admin: 09/28/20 16:01 Dose: 440 mls/hr Documented by: [id number] Levetiracetam 1,250 mg/ Sodium (Chloride) 112.5 mls @ 420 mls/hr IV Q12H ABIGAIL Stop: 10/28/20 20:59 Last Infusion: 09/29/20 09:59 Dose: 0 mls/hr Documented by: [id number] Admin: 09/29/20 08:42 Dose: 420 mls/hr Documented by: [id number] Infusion: 09/28/20 21:08 Dose: 0 mls/hr Documented by: [id number] Admin: 09/28/20 20:51 Dose: 420 mls/hr Documented by: [id number] Lorazepam (Lorazepam 2 Mg/Ml Vial (Im Use)) Confirm Administered Dose 2 mg .ROUTE .STK-MED ONE Stop: 09/28/20 00:35 Last Admin: 09/28/20 00:38 Dose: 2 mg Documented by: [id number] Phenytoin Sodium (Phenytoin Sodium Er 100 Mg Cap) 200 mg PO BID ABIGAIL Stop: 10/28/20 08:59 Last Admin: 09/29/20 08:42 Dose: 200 mg Documented by: [id number] Admin: 09/28/20 20:51 Dose: 200 mg Documented by: [id number] Admin: 09/28/20 08:46 Dose: 200 mg Documented by: [id number] Description This is a 21 electrode EEG with a single channel dedicated to limited EKG. The electrodes were placed in accordance with the International 10-20 system. History: epilepsy, breakthrough seizures Rx: rosa kay Start/Stop: 12:03pm/12:23pm Attending reading: Amy Blackmon EEG Description: EEG background: Background was symmetric, intermixed 8-9 Hz alpha rhythm with intermittent, frontal predominant 2-4 Hz delta/theta slowing noted. A brief well formed 8-9 Hz posterior dominant rhythm was observed. The EEG is continuous. There is variability and reactivity present. Activation and reactivity: Photic stimulation performed without any abnormalities noted. No photic driving observed. Hyperventilation was not performed. Sleep: No sleep architecture noted. Epileptiform discharges: No epileptiform discharges were observed. Rhythmic and periodic patterns: None Seizures: None Impression: This was a mildly abnormal awake EEG given intermittent frontal predominant focal slowing suggestive of an underlying focal cerebral dysfunction. No seizures or epileptiform discharges were seen. Clinical correlation required. [facility] EEG Procedure Codes Indication for Procedure (1) Seizure disorder: Neurology Neurology: 29279 EEG include record awake & drowsy
[2020-09-29] MEDS ORDERED: PHENYTOIN SODIUM ER 100 MG CAP PO ONE (21:00)
[2020-09-29] MEDS: levETIRAcetam 250 MG TAB PO SCH (22:06)
[2020-09-30] MEDS: levETIRAcetam 250 MG TAB PO SCH (08:37)
--- NOTE | 2020-09-30 12:33 | Discharge Summary ---
Date of Service September 30, 2020 Admission HPI Per Admitting Provider The patient is a 40-year-old inmate at [facility], with a past medical history including seizure disorder, Dilantin overdose, Dilantin toxicity, who presents to the emergency department with complaint of a seizure. The patient reports he does not member what happened, and ended up waking up on the floor at this time has a mild headache. He denies missing any doses, however, half-way staff in attendance in the ED reports that he misses several doses on a regular basis. His last Dilantin level was reportedly low at the half-way, but no dosage adjustments were made. Laboratories in the emergency department included the following: Phenytoin level subtherapeutic at 6.4, and COVID-19 screening testing for admission was positive. Principal Diagnosis Seizure due to low dilantin level Discharge Exam Constitutional WD/WN, vitals as above Neck trachea midline, no thyromegaly Respiratory normal respiratory effort, lungs clear to auscultation Cardiovascular RRR, no murmur, no edema Gastrointestinal (Abdomen) normal bowel sounds, soft, nontender, no hepatosplenomegaly Musculoskeletal no cyanosis or clubbing, extremities motor strength 5/5 Skin no rashes, warm and dry Neurologic patellar DTR's 2+ bilat, sensation intact and PERRL, EOMI, accommodation nl, no face palsy, no dysarthria Psychiatric A+Ox3, euthymic affect Lymphatic no cervical or axillary lymphadenopathy Discharge Data Allergies Allergy/AdvReac Type Severity Reaction Status Date / Time No Known Allergies Allergy Unverified 09/27/20 23:10 Consultations 09/28/20 01:03 ED Decision to Admit Stat 09/28/20 04:16 Consult Neurology Routine Ordered Studies 09/27/20 22:47 CT cervical spine wo con Urgent CT head/brain wo con Urgent Hospital Course (1) Seizure disorder: Seizure disorder/seizure activity- Dilantin level subtherapeutic at 6.4 on admission he admits that he does not take his Dilantin as prescribed, misses doses due to side effects will place on Keppra 1250mg IV BID, load with Keppra change to Keppra 1250mg PO BID check Keppra level in morning, still pending, send out lab recommend rechecking Keppra level in 2 weeks at [facility] will wean off Dilantin 300mg HS x 2 week, 200mg HS x 2 week then 100mg HS x 2 week then stop EEG done - no epileptiform activity Dr. Blackmon following (2) Seizure: See above (3) SARS-CoV-2 positive: he says he had the Grabiel and Grabiel vaccine two weeks ago stable on room air, no dyspnea, no cough, no fever likely that the vaccine helped, should not be contagious defer to [facility] on isolation per their protocol Total Time Total Time Spent Total Time Spent (In Minutes): 32 Total Time Includes: Examination of the Patient, Discharge Planning, Medication Reconciliation and Communication With Other Providers Discharge Plan Discharge Items [facility] Disposition: [facility] Reason For Visit: SEIZURE DISORDER Discharge Diagnosis: Seizures due to low Dilantin level Condition on Discharge: Good Goals: change to Keppra and taper off of Dilantin Activity: Resume your previous activity Non-emergency contact: Primary Care Provider Call non-emergency contact if: you have any medication questions Follow-up/Referrals: [facility] [Primary Care Provider] - (this week) Diet: Regular Addtl Attending Provider Instructions: Medications: recommendations made by Dr. Blackmon, neurologist - KEPPRA: 1250mg twice a day, level drawn this morning, would check a repeat level in one week to make adjustments if needed to the Keppra - DILANTIN: plan to taper off of this medication since it was not working and he was not taking correctly taper as follows: 300mg HS for 2 weeks, 200mg HS for 2 weeks, 100mg HS for 2 weeks then stop he will only be on Keppra after that Seizure disorder, breakthrough seizure: due to not taking Dilantin appropriately, level was low at time of admission admitted to [place] that he would miss doses, he was responsible for taking his medications at [facility] change to Keppra 1250mg BID, he has had no seizures for over 48 hours normal EEG while inpatient can follow up with neurology in 4-6 weeks, can do virtual visit with [facility] or use preferred neurologist through [facility] system COVID 19 positive: no hypoxia, no changes on chest x-ray got Grabiel and Grabiel vaccine a few weeks ago, likely prevented him from having symptoms and he should not be contagious either Pending Studies at Discharge: No Stand-Alone Forms: My [facility] Skilled Items Patient informed of condition?: Yes Discharge Level of Care: Other Communicable Disease: No Discharge Prognosis: Stable Lines: None Urinary Catheter: No Medications and DC Order Prescriptions: New phenytoin sodium extended [Dilantin Extended] 100 mg Capsule 300 mg PO QPM 13 Days Qty: 39 RF: 0 levetiracetam 500 mg tablet 1,250 mg PO BID 30 Days Qty: 150 RF: 3 Discontinued phenytoin sodium extended 100 mg Capsule 200 mg PO BID RF: 0 Discharge Orders: Discharge Order (Routine); Ordered 09/30/20 Ordered By: Parish Watt Admission Data Admit Date/Time: 09/28/20 02:37 Attending Provider: Parish Watt Admit Provider: Mp Adkins Primary Care Provider: Neo [facility] Other Providers: Mp Adkins ; Andrea Kasper Coding Level of Care Code D/C Day Management >30 mins Diagnoses Seizure disorder G40.909 Seizure R56.9 SARS-CoV-2 positive U07.1
[2020-09-30] MEDS ORDERED: PHENYTOIN SODIUM ER 100 MG CAP PO SCH (21:00)
== END 2020-09-30 15:16 | DRG 100 ==
LOC: ED 22:21 → SUATTDRO 09-28 02:37 → 2S 09-28 02:37

== ENCOUNTER 2023-09-27 03:37 | Inpatient (IN) ==
--- NOTE | 2023-09-27 03:46 | Emergency Department Note ---
History of Present Illness General Chief complaint: Seizure Stated complaint: SEIZURE X 2 SINCE 010, FELL OUT OF BUNK HIT HEAD Time Seen by Provider: 09/27/23 03:39 History of Present Illness This 43-year-old presents on Keppra presents to the ER for seizure times twice. Patient had a seizure tonight and fell out of his bunk and hit his head. He then was in the [facility] and had another seizure. They then sentiment. Patient states has been taking his Keppra as directed. Patient denies chest pain, dyspnea, neck pain, numbness, tingling, localized weakness. No other concerns per patient. Patient is on Keppra 750 mg twice daily. No recent levels checked. Home Medications Medication Instructions Recorded Confirmed Type cholecalciferol (vitamin D3) 25 25 mcg PO DAILY 11/01/20 11/01/20 History mcg (1,000 unit) capsule (Vitamin D3) levetiracetam 1,000 mg tablet 1,000 mg PO BID 11/01/20 11/01/20 History (Keppra) levetiracetam 500 mg tablet 500 mg PO BID 11/01/20 11/01/20 History Allergies Allergy/AdvReac Type Severity Reaction Status Date / Time No Known Allergies Allergy Unverified 11/01/20 18:16 Past Med/Surg History Medical History SARS-CoV-2 positive Seizure disorder Seizure Social History Smoking Status: Former smoker Second Hand Exposure: No; Do You Dip or Chew Tobacco: No; Hx Alcohol Use: No Hx Substance Use: No Preferred Language: Nepali Communication Ability: Effective Ophthalmic Tech Required: No Beliefs That Will Affect Care: None Current Living Situation: Other Current Living Situation Comment: prisoner at [facility] Feels Safe at Home: Yes Assistive Devices: None Review of Systems A total of 10 systems reviewed and were otherwise negative Physical Exam Vital Signs Vital Signs - 24 hr 09/27/23 03:41 09/27/23 03:55 09/27/23 04:12 Temperature 37 C Temperature Source Oral Pulse Rate 54 L 53 L 69 Pulse Rate from SpO2 Sensor 67 Respiratory Rate 18 16 Respiratory Effort / Characteristics Non-Labored Spontaneous Respiratory Depth Normal Blood Pressure 122/84 120/83 Blood Pressure Mean 96 95 Pulse Oximetry 98 98 Oxygen Delivery Method Room Air Sepsis Recent Fever Within 48 Hours No Sepsis New/Unexplained Change in Mental Status N/A Sepsis Action Taken by Nursing No Action Required 09/27/23 04:31 09/27/23 05:00 Temperature Temperature Source Pulse Rate 92 H 78 Pulse Rate from SpO2 Sensor 91 H 76 Respiratory Rate 16 13 Respiratory Effort / Characteristics Respiratory Depth Blood Pressure 177/94 H 118/68 Blood Pressure Mean 121 84 Pulse Oximetry 98 96 Oxygen Delivery Method Sepsis Recent Fever Within 48 Hours Sepsis New/Unexplained Change in Mental Status Sepsis Action Taken by Nursing VITALS: Vitals are noted on the nurse's note and reviewed by myself. Vital signs stable. GENERAL: Pleasant gentleman in shackles, in no acute distress, nondiaphoretic, well-developed well-nourished. SKIN: Forehead contusion, the rest of the skin was without rashes, erythema, edema, or bruising. There is no tenting of the skin. Capillary reflex less than 2 seconds. HEAD: Normocephalic EARS: External auditory canals clear EYES: Pupils equal round and reactive to light and accommodation. Conjunctivae without injection, sclerae without icterus. Extraocular movements intact. NOSE: Patent, no discharge. MOUTH: Mucous membranes moist. Pharynx without erythema or exudate. Uvula midline. Airway patent. Tongue does not deviate. NECK: Supple without nuchal rigidity. No lymphadenopathy. No thyromegaly. Cervical spine is nontender. No JVD. HEART: Regular rate and rhythm LUNGS: Clear to auscultation bilaterally without wheezes, rales or rhonchi. No retractions or accessory muscle use. ABDOMEN: Positive bowel sounds x 4. Normal tympanic percussion. Soft, nontender, without masses or organomegaly. Church sign negative. No guarding or rebound tenderness. No CVA tenderness MUSCULOSKELETAL: No muscle atrophy, erythema, or edema noted. NEURO: Patient was alert and oriented to person place and time. Normal sensation to light and sharp touch. No focal neurological deficits. Course Administered Medications Potassium Chloride/Sodium Chloride (Normal Saline W/20 Meq Kcl) 20 meq in 1,000 mls @ 80 mls/hr IV .[id number] ABIGAIL Stop: 09/27/23 18:59 Last Admin: 09/27/23 06:33 Dose: 80 mls/hr Documented By: BUSTER Discontinued Medications Levetiracetam (Levetiracetam 500 Mg/5 Ml Vial) 1,000 mg IV NOW STA Stop: 09/27/23 03:46 Last Admin: 09/27/23 03:55 Dose: 1,000 mg Documented By: AMMON Levetiracetam (Levetiracetam 500 Mg/5 Ml Vial) 2,000 mg IV NOW STA Stop: 09/27/23 04:32 Last Admin: 09/27/23 04:38 Dose: 2,000 mg Documented By: AMMON Lorazepam (Lorazepam 1 Mg/1 Ml Syr Ed Inj Use) Confirm Administered Dose 2 mg .ROUTE .STK-MED ONE Stop: 09/27/23 04:30 Last Admin: 09/27/23 04:31 Dose: 2 mg Documented By: KERI Lorazepam (Lorazepam 1 Mg/1 Ml Syr Ed Inj Use) 2 mg IV ONE STA Stop: 09/27/23 04:33 Last Admin: 09/27/23 04:37 Dose: Not Given Documented By: AMMON Critical Care Time Critical Care Time: Yes Total Critical Care Time: 35 I have personally spent 35 minutes of critical care time in the direct management of this patient. This includes bedside care, interpretation of diagnostic studies, and testing, discussion with consultants, patient, and family members, and other required patient management activities. This 35 minutes is in excess of all separately billable procedures. Medical Decision Making Medical Records Attestation: I reviewed the patient's medical records. Home Medications Current Medication List: was personally reviewed by me Laboratory Data Attestation: I reviewed the patient's lab results. 09/27/23 03:55 09/27/23 03:55 Lab Results 09/27/23 Range/Units 03:55 WBC 5.03 (4.8-10.8) K/ul RBC 4.69 L (4.70-6.10) M/uL Hgb 14.2 (14.0-18.0) g/dl Hct 43.0 (42.0-52.0) % MCV 91.7 (80.0-100.0) fL MCH 30.3 (25.0-34.0) pg MCHC 33.0 (32.0-36.0) g/dL RDW Std Deviation 42.0 (36.4-46.3) fL RDW Coeff of Jorge 12.5 (11.5-14.5) % Plt Count 170 (130-400) K/uL MPV 11.8 (9.4-12.4) fL Immature Gran % (Auto) 0.4 % Neut % (Auto) 53.3 % Lymph % (Auto) 32.8 % [place] % (Auto) 8.5 % Eos % (Auto) 4.8 % Baso % (Auto) 0.2 % Neut # (Auto) 2.68 (1.40-6.50) K/uL Lymph # (Auto) 1.65 (1.20-3.40) K/uL [place] # (Auto) 0.43 (0.11-0.59) K/uL Eos # (Auto) 0.24 (0.00-0.50) K/uL Baso # (Auto) 0.01 (0.00-0.20) K/uL Immature Gran # (Auto) 0.02 (0.01-0.20) K/uL Sodium 139 (136-145) mmol/L Potassium 4.0 (3.5-5.1) mmol/L Chloride 106 (98-107) mmol/L Carbon Dioxide 28 (21-32) mmol/L Anion Gap 5 (3-11) BUN 10 (6-23) mg/dl Creatinine 0.94 (0.6-1.4) mg/dl Est Cr Clr Drug Dosing 96.0 ml/min Est GFR ( Amer) 113.0 ml/min Est GFR (Non-Af Amer) 97.5 ml/min BUN/Creatinine Ratio 10.6 (10-20) Glucose 95 (70-99(Fasting)) mg/dl Calcium 9.4 (8.6-10.3) mg/dl Magnesium 1.9 (1.7-2.4) mg/dl Total Bilirubin 0.7 (0.2-1.0) mg/dl AST 15 (13-39) U/L ALT 11 (7-52) U/L Alkaline Phosphatase 68 (34-104) U/L Total Creatine Kinase 96 (30-223) U/L Total Protein 7.0 (6.0-8.3) gm/dl Albumin 4.4 (3.4-5.0) gm/dl Globulin 2.6 (2.5-4.0) gm/dl Albumin/Globulin Ratio 1.7 (0.9-2) Imaging Data Attestation: I personally reviewed and interpreted this imaging study as follows: Radiologist's Impression: Head CT 09/27/23 03:44 Exam(s): CT HEAD Without Contrast EXAM: CT Head Without Intravenous Contrast CLINICAL HISTORY: Seizure. TECHNIQUE: Axial computed tomography images of the head/brain without intravenous contrast. CTDI is 61.67 mGy and DLP is 999.06 mGy-cm. Automated exposure control was utilized for the study. A dose lowering technique was utilized adhering to the principles of ALARA. COMPARISON: CT head without contrast dated 08/11/2022 FINDINGS: Brain: Unremarkable. No hemorrhage. No significant white matter disease. No edema. Ventricles: Unremarkable. No ventriculomegaly. Bones/joints: Unremarkable. No acute fracture. Soft tissues: No significant overlying soft tissue abnormality. The previously noted prominent contusive changes left anteriorly have resolved. Sinuses: Unremarkable as visualized. No acute sinusitis. Mastoid air cells: Unremarkable as visualized. No mastoid effusion. IMPRESSION: No acute intracranial process identified. Electronically signed by: Sandeep Mabry MD 09/27/23 04:47 AM MDM Narrative Prior records/ancillary studies reviewed. Patient placed in seizure precautions immediately upon arrival. Nursing notes reviewed. Additional history obtained from correctional officers The patient's history was concerning for a possible seizure. Differential diagnosis: Etiologies such as infection, hypoglycemia, electrolyte abnormalities, cardiac sources, intracerebral event, trauma, toxicologic, neurologic, as well as others were entertained. Physical examination: As above. No signs of trauma. ER treatment provided: An order was placed for continuous cardiac monitoring. The monitor shows a rate of 60-100 with a sinus rhythm per my interpretation. Seizure precautions, Keppra 3 g IV, Ativan 2 g IV was given On reassessment the patient felt better. Diagnostics interpretation by me: ECG: ordered for seizure ECG: Normal sinus, normal intervals, no acute ST-T wave changes. Impression sinus bradycardia rate of 59 independently interpreted by myself The labs Independently Interpreted by myself revealed Keppra level send out. Stable H&H. Glucose 95 Imaging studies: Imaging was negative Consultation: A consultation was placed with the neurologist, Dr Seok. The case was discussed and diagnostics were reviewed. He was pleased with the Keppra dosing and Ativan and recommends no current changes to the Keppra dosing.. Medicine was consulted and the case discussed. Patient be admitted to the medical service for multiple seizures tonight. Exam and history seem consistent with multiple seizures. Patient first had a seizure and fell to bed and then has had 2 seizures since. Patient is adamant he has been taking his Keppra. He was given loading dose of Keppra and Ativan. medicine was consulted and the patient's case discussed. He will be admitted to the medical service. Neurology was consulted and the case was reviewed. They recommend no current change to the Keppra dosing. The pt informed about the findings as listed above. All questions were answered and pleased with the treatment. The chart was completed utilizing [employer] Speech voice recognition software. Grammatical errors, random word insertions, pronoun errors, and incomplete sentences are an occassional consequence of this system due to software limitations, ambient noise, and hardware issues. Any formal questions or concerns about the content, text, or information contained within the body of this dictation should be directly addressed to the physician assistant property manager for clarification. Impression & Plan Seizure, Head injury Discharge Plan Visit Data Chief Complaint: Seizure Stated Complaint: SEIZURE X 2 SINCE 0100, FELL OUT OF BUNK HIT HEAD ED Provider: Codie Sherman ED Midlevel Provider: Shira Spain Discharge Problem: Seizure, Head injury Patient Disposition: Admitted As Inpatient Condition: Good Discharge Instructions Interventions: ED Discharge Assessment Last Done: 09/27/23 06:07
[2023-09-27] MEDS: levETIRAcetam 500 MG/5 ML VIAL IV STA ×2 (03:55→04:38)
[2023-09-27 04:14] LABS: Basophils # (auto) 0.01 K/uL (0.00-0.20); Basophils % (auto) 0.2 %; Eosinophils # (auto) 0.24 K/uL (0.00-0.50); Eosinophils % (auto) 4.8 %; Hemoglobin 14.2 g/dl (14.0-18.0); Immature Granulocytes # (auto) 0.02 K/uL (0.01-0.20); Immature Granulocytes % (auto) 0.4 %; Lymphocytes # (auto) 1.65 K/uL (1.20-3.40); Lymphocytes % (auto) 32.8 %; Mean Corpuscular Hemoglobin 30.3 pg (25.0-34.0); Mean Corpuscular Volume 91.7 fL (80.0-100.0); Mean Platelet Volume 11.8 fL (9.4-12.4); Monocytes # (auto) 0.43 K/uL (0.11-0.59); Monocytes % (auto) 8.5 %; Neutrophils # (auto) 2.68 K/uL (1.40-6.50); Neutrophils % (auto) 53.3 %; Platelet Count 170 K/uL (130-400); RDW Coefficient of Variation 12.5 % (11.5-14.5); Red Blood Count 4.69 M/uL (4.70-6.10); White Blood Count 5.03 K/ul (4.8-10.8)
[2023-09-27 04:23] LABS: Albumin Globulin Ratio 1.7 (0.9-2); Albumin Level 4.4 gm/dl (3.4-5.0); BUN Creatinine Ratio 10.6 (10-20); Bilirubin,Total 0.7 mg/dl (0.2-1.0); Calcium 9.4 mg/dl (8.6-10.3); Est GFR (Non-African American) 97.5 ml/min; Globulin 2.6 gm/dl (2.5-4.0); Magnesium 1.9 mg/dl (1.7-2.4)
[2023-09-27] MEDS: LORazepam 1 MG/1 ML SYR ED Inj Use ONE (04:31)
[2023-09-27] MEDS: LORazepam 1 MG/1 ML SYR ED Inj Use IV STA (04:37)
--- NOTE | 2023-09-27 04:48 | CT Scan Report ---
Exam(s): CT HEAD Without Contrast EXAM: CT Head Without Intravenous Contrast CLINICAL HISTORY: Seizure. TECHNIQUE: Axial computed tomography images of the head/brain without intravenous contrast. CTDI is 61.67 mGy and DLP is 999.06 mGy-cm. Automated exposure control was utilized for the study. A dose lowering technique was utilized adhering to the principles of ALARA. COMPARISON: CT head without contrast dated 08/11/2022 FINDINGS: Brain: Unremarkable. No hemorrhage. No significant white matter disease. No edema. Ventricles: Unremarkable. No ventriculomegaly. Bones/joints: Unremarkable. No acute fracture. Soft tissues: No significant overlying soft tissue abnormality. The previously noted prominent contusive changes left anteriorly have resolved. Sinuses: Unremarkable as visualized. No acute sinusitis. Mastoid air cells: Unremarkable as visualized. No mastoid effusion. IMPRESSION: No acute intracranial process identified. Electronically signed by: Sandeep Mabry MD 09/27/23 04:47 AM
--- NOTE | 2023-09-27 05:25 | History & Physical Report ---
Date of Service September 27, 2023 Assessment & Plan (1) Observed seizure-like activity: (2) Seizure disorder: Plan Observed seizure-like activity/seizure disorder- Patient had 2 seizures while at the present since 1:00 in the afternoon, and a third seizure while in the ED His usual Keppra dose is to be 750 mg p.o. twice daily, but he is not felt to be taking this properly Per ED conversation with neurology, patient received additional 1000 mg Keppra IV dose, followed by 2000 mg IV dose for total of 3000 mg IV. Patient also received lorazepam 2 mg IV while in the ED. Patient was sedated during my examination due to the above. Will place on Keppra 750 mg IV every 12 hours beginning this evening. CT scan of head is negative for acute event. Will leave it to neurology if they would like to do an MRI brain and EEG Admit to monitored bed History of Present Illness Chief Complaint: The patient was brought to the emergency department from [facility] with reported having had 2 seizures since 1:00 PM, with having fallen out of his bunk, and reportedly hit his head. He did have his third seizure while in the emergency department Primary Care Provider: IAN Kaminskiner The patient is a 43-year-old male with a past medical history including seizure disorder, Dilantin overdose and toxicity, who presents to the emergency department with 2 seizures while at the long term, and a third seizure while in the ED. He was felt to not be taking his Keppra dosing as directed, and was given a loading dose of Keppra 1000 mg, followed by 2000 mg IV per neurology recommendation while in the ED. Allergies Allergy/AdvReac Type Severity Reaction Status Date / Time No Known Allergies Allergy Unverified 11/01/20 18:16 Home Medications Medication Instructions Recorded Confirmed Type cholecalciferol (vitamin D3) 25 25 mcg PO DAILY 11/01/20 11/01/20 History mcg (1,000 unit) capsule (Vitamin D3) levetiracetam 1,000 mg tablet 1,000 mg PO BID 11/01/20 11/01/20 History (Keppra) levetiracetam 500 mg tablet 500 mg PO BID 11/01/20 11/01/20 History Past Med/Surg History Medical History SARS-CoV-2 positive Seizure disorder Seizure Social History Smoking Status: Former smoker Hx Alcohol Use: No Hx Substance Use: No Preferred Language: Grenadian Communication Ability: Effective Varnish Mixer Required: No Beliefs That Will Affect Care: None Current Living Situation: Other Feels Safe at Home: Yes Assistive Devices: None Review of Systems Review of Systems: HPI and review of systems not possible due to patient being sedated General e xamination, information is gathered from the ED record, transfer records from the long term, and the [facility] Physical Exam Physical Exam: The patient is sedated well developed and well nourished, normocephalic and atraumatic, lying in bed and in no acute distress. HEENT--PERRL, EOMI, mucous membranes and oropharynx dry. Neck--supple. No JVD. No bruits. Thyroid normal, trachea midline, no adenopathy. Heart--normal S1 and S2. No murmurs, rubs or gallops. Lungs--clear bilaterally, no respiratory distress, no accessory muscle use. Abdomen--normal bowel sounds and soft. Nontender. Nondistended, no hernias or masses, no organomegaly. Extremities--No edema. Dermatologic--normal skin turgor, normal color, no abnormal lymph nodes, no rash. Neurologic--cranial nerves II through XII grossly intact. Rheumatologic--noted on exam due to sedation Psychiatric--sedated Results & Data Results & Data Vital Signs (Past 12 Hours) Vital Signs Temp Pulse Resp BP Pulse Ox O2 Del Method 09/27/23 05:00 78 13 118/68 96 09/27/23 04:31 92 H 16 177/94 H 98 09/27/23 04:12 69 16 120/83 98 09/27/23 03:55 53 L 09/27/23 03:41 37 C 54 L 18 122/84 98 Room Air Laboratory Results Laboratory Results WBC 5.03 K/ul (4.8-10.8) 09/27/23 03:55 RBC 4.69 M/uL (4.70-6.10) L 09/27/23 03:55 Hgb 14.2 g/dl (14.0-18.0) 09/27/23 03:55 Hct 43.0 % (42.0-52.0) 09/27/23 03:55 MCV 91.7 fL (80.0-100.0) 09/27/23 03:55 MCH 30.3 pg (25.0-34.0) 09/27/23 03:55 MCHC 33.0 g/dL (32.0-36.0) 09/27/23 03:55 RDW Std Deviation 42.0 fL (36.4-46.3) 09/27/23 03:55 RDW Coeff of Jorge 12.5 % (11.5-14.5) 09/27/23 03:55 Plt Count 170 K/uL (130-400) 09/27/23 03:55 MPV 11.8 fL (9.4-12.4) 09/27/23 03:55 Immature Gran % (Auto) 0.4 % 09/27/23 03:55 Neut % (Auto) 53.3 % 09/27/23 03:55 Lymph % (Auto) 32.8 % 09/27/23 03:55 [place] % (Auto) 8.5 % 09/27/23 03:55 Eos % (Auto) 4.8 % 09/27/23 03:55 Baso % (Auto) 0.2 % 09/27/23 03:55 Neut # (Auto) 2.68 K/uL (1.40-6.50) 09/27/23 03:55 Lymph # (Auto) 1.65 K/uL (1.20-3.40) 09/27/23 03:55 [place] # (Auto) 0.43 K/uL (0.11-0.59) 09/27/23 03:55 Eos # (Auto) 0.24 K/uL (0.00-0.50) 09/27/23 03:55 Baso # (Auto) 0.01 K/uL (0.00-0.20) 09/27/23 03:55 Immature Gran # (Auto) 0.02 K/uL (0.01-0.20) 09/27/23 03:55 Sodium 139 mmol/L (136-145) 09/27/23 03:55 Potassium 4.0 mmol/L (3.5-5.1) 09/27/23 03:55 Chloride 106 mmol/L (98-107) 09/27/23 03:55 Carbon Dioxide 28 mmol/L (21-32) 09/27/23 03:55 Anion Gap 5 (3-11) 09/27/23 03:55 BUN 10 mg/dl (6-23) 09/27/23 03:55 Creatinine 0.94 mg/dl (0.6-1.4) 09/27/23 03:55 Est Cr Clr Drug Dosing 96.0 ml/min 09/27/23 03:55 Est GFR ( Amer) 113.0 ml/min 09/27/23 03:55 Est GFR (Non-Af Amer) 97.5 ml/min 09/27/23 03:55 BUN/Creatinine Ratio 10.6 (10-20) 09/27/23 03:55 Glucose 95 mg/dl (70-99(Fasting)) 09/27/23 03:55 Calcium 9.4 mg/dl (8.6-10.3) 09/27/23 03:55 Magnesium 1.9 mg/dl (1.7-2.4) 09/27/23 03:55 Total Bilirubin 0.7 mg/dl (0.2-1.0) 09/27/23 03:55 AST 15 U/L (13-39) 09/27/23 03:55 ALT 11 U/L (7-52) 09/27/23 03:55 Alkaline Phosphatase 68 U/L (34-104) 09/27/23 03:55 Total Creatine Kinase 96 U/L (30-223) 09/27/23 03:55 Total Protein 7.0 gm/dl (6.0-8.3) 09/27/23 03:55 Albumin 4.4 gm/dl (3.4-5.0) 09/27/23 03:55 Globulin 2.6 gm/dl (2.5-4.0) 09/27/23 03:55 Albumin/Globulin Ratio 1.7 (0.9-2) 09/27/23 03:[address] 09/27/23 03:44 Exam(s): CT HEAD Without Contrast EXAM: CT Head Without Intravenous Contrast CLINICAL HISTORY: Seizure. TECHNIQUE: Axial computed tomography images of the head/brain without intravenous contrast. CTDI is 61.67 mGy and DLP is 999.06 mGy-cm. Automated exposure control was utilized for the study. A dose lowering technique was utilized adhering to the principles of ALARA. COMPARISON: CT head without contrast dated 08/11/2022 FINDINGS: Brain: Unremarkable. No hemorrhage. No significant white matter disease. No edema. Ventricles: Unremarkable. No ventriculomegaly. Bones/joints: Unremarkable. No acute fracture. Soft tissues: No significant overlying soft tissue abnormality. The previously noted prominent contusive changes left anteriorly have resolved. Sinuses: Unremarkable as visualized. No acute sinusitis. Mastoid air cells: Unremarkable as visualized. No mastoid effusion. IMPRESSION: No acute intracranial process identified. Electronically signed by: Sandeep Mabry MD 09/27/23 04:47 AM Code Status & VTE Plan Code Status Full code VTE Prophylaxis Plan VTE Prophylaxis will be ordered: Yes PG Care Time/CCT Total # of Minutes Spent Total Time Spent with Patient: Total time spent is greater than 50% in coordination of care (as documented) at patient's floor/unit and/or counseling patient: Coding Level of Care Code 52416 INT INP/OBS CARE 2/55MIN Diagnoses Observed seizure-like activity R56.9 Seizure disorder G40.909
[2023-09-27] MEDS ORDERED: LORazepam 2 MG in SYRINGE 0.5 ML IV PRN (06:18)
[2023-09-27] MEDS ORDERED: ONDANSETRON INJ 2 MG/ML 2 ML VIAL IV PRN (06:18)
[2023-09-27] MEDS: NSS + 20MEQ KCL 20 MEQ/1,000 ML BAG IV SCH (06:33)
--- NOTE | 2023-09-27 08:45 | Neurology Consultation ---
Date of Consultation September 27, 2023 Assessment & Plan (1) Seizure: History of Present Illness Attending Physician: Bharath Ruiz MD History of Present Illness pt this morning feeling ok. still sleepy from the ativan he got in ED. pt is known to neurology as he was seen by neurology service few years ago for seizure breakthrough again. no further seizures at this point. CT negative. labs negative. unclear if he really takes his meds. admission HPI: The patient was brought to the emergency department from [facility] with reported having had 2 seizures since 1:00 PM, with having fallen out of his bunk, and reportedly hit his head. He did have his third seizure while in the emergency department Primary Care Provider: [facility] The patient is a 43-year-old male with a past medical history including seizure disorder, Dilantin overdose and toxicity, who presents to the emergency department with 2 seizures while at the long term, and a third seizure while in the ED. He was felt to not be taking his Keppra dosing as directed, and was given a loading dose of Keppra 1000 mg, followed by 2000 mg IV per neurology recommendation while in the ED. Allergies Allergy/AdvReac Type Severity Reaction Status Date / Time No Known Allergies Allergy Unverified 11/01/20 18:16 Home Medications Medication Instructions Recorded Confirmed Type cholecalciferol (vitamin D3) 25 25 mcg PO DAILY 11/01/20 11/01/20 History mcg (1,000 unit) capsule (Vitamin D3) levetiracetam 1,000 mg tablet 1,000 mg PO BID 11/01/20 11/01/20 History (Keppra) levetiracetam 500 mg tablet 500 mg PO BID 11/01/20 11/01/20 History Patient History Medical History SARS-CoV-2 positive Seizure disorder Seizure Social History Smoking Status: Former smoker Second Hand Exposure: No; Do You Dip or Chew Tobacco: No; Hx Alcohol Use: No Hx Substance Use: No Preferred Language: Honduran Communication Ability: Effective Pig Handler Required: No Beliefs That Will Affect Care: None Current Living Situation: Other Current Living Situation Comment: prisoner at [facility] Feels Safe at Home: Yes Assistive Devices: None Exam (Neuro) Physical Exam: HEENT: normocephalic Neuro: Mental: AOx4, fluent speech, normal comprehension, no apraxia, no L/R confusion, no neglect CN: PERRL, Full EOM, symmetric face, intact sensation t/o face, midline T/U/P, 5/5 SCM/traps. Motor: No abnormal movements, normal tone and bulk, 5/5 t/o bilaterally Coord: intact Gait:deferred, in cuffs Impression: 43 yo male with known seizure disorder and on keppra. not in status and currently stable. There is question of keppra dosage as ED note states he is on 750mg po bid but his prior note and records indicates otherwise (1500mg bid). Unclear about his compliance also. Recommendations: no need for EEG or mri. pt states he does not like keppra as it gives him stomach trouble (again ? for his compliance issue). would recommend continue keppra 750mg po bid for now (can now change to po from IV) and add depakote 500mg ER po daily in plan for cutting back on the keppra dose as pt is complaining of stomach trouble. After 1 week, reduce his keppra dose to 500mg po bid and continue depakote. consider checking UA and UDx also. he can have routine outpt f/u in about 2 months (whichever medical system the long term is contracted with). if pt doing well today, likely can be discharged this afternoon or tomorrow. call again if new question. Chart reviewed I have spent more than 50% educating patient about potential diagnosis and neurological evaluation and coordinating care with patient's treatment team. Total time spent (including chart review and coordination of care): 60 min (this includes chart review). Results & Data Vital Signs (Past 12 Hours) Vital Signs Temp Pulse Pulse Resp BP BP Pulse Ox 09/27/23 07:30 36.6 C 59 L 18 116/81 99 09/27/23 06:15 36.6 C 72 16 109/69 97 09/27/23 05:30 92 H 18 123/64 98 09/27/23 05:00 78 13 118/68 96 09/27/23 04:31 92 H 16 177/94 H 98 09/27/23 04:12 69 16 120/83 98 09/27/23 03:55 53 L 09/27/23 03:41 37 C 54 L 18 122/84 98 O2 Del Method 09/27/23 07:30 Room Air 09/27/23 06:15 Room Air 09/27/23 05:30 09/27/23 05:00 09/27/23 04:31 09/27/23 04:12 09/27/23 03:55 09/27/23 03:41 Room Air PG Care Time/CCT Total # of Minutes Spent Total Time Spent with Patient: Total time spent is greater than 50% in coordination of care (as documented) at patient's floor/unit and/or counseling patient: Coding Level of Care Code 63849 IN/OBS CONSULT LVL 4,60M Diagnoses Seizure R56.9
[2023-09-27] MEDS: HEPARIN SOD 5,000 UNIT/0.5 ML VIAL SQ SCH (10:23)
--- NOTE | 2023-09-27 10:52 | Electrocardiogram Report ---
Test Reason : Blood Pressure : / mmHG Vent. Rate : 059 BPM Atrial Rate : 059 BPM P-R Int : 138 ms QRS Dur : 088 ms QT Int : 384 ms P-R-T Axes : 042 072 052 degrees QTc Int : 380 ms Sinus bradycardia with sinus arrhythmia Minimal voltage criteria for LVH, may be normal variant Early repolarization Borderline ECG When compared with ECG of 01-NOV-2020 18:05, No significant change was found Confirmed by Ravindra Crowley ([id number]) on 09/27/2023 10:51:32 AM Referred By: Neo SOSA Confirmed By:Ravindra Crowley
[2023-09-27] MEDS: DIVALPROEX EXTENDED RELEASE 500 MG TAB PO SCH (11:16)
--- NOTE | 2023-09-27 12:25 | Hospitalist Progress Note ---
Date of Service September 27, 2023 Assessment & Plan (1) Seizure: Plan: multiple seizures likely due to inconsistent use of keppra back at the correction. patient dislikes the keppra due to side effects (stomach upset, etc). suspect keppra level will return low when it does return. s/p keppra load of total of 3000mg IV given in the ER overnight. no seizures since admission to PCU. appreciate neurology consultation by Dr Rodrigues. he recommends adding depakote ER 500mg daily. in 1 week can then reduce dose of keppra from 750mg BID to 500mg BID. observe overnight for additional seizures. per neurology EEG and MRI brain can be deferred at this time. (2) Seizure disorder: Plan: long-standing, dating back to age 12 see #1 above (3) Head injury: Plan: due to seizure small forehead hematoma with some abrasions bactroban TID to the abrasions he doesn't recall date of last TDaP will give such today (he hit his head against a metal bunk bed) Plan DVT proph - heparin BID can likely d/c back to correction tomorrow if no seizures overnight Admission and Anticipated Discharge Date Admission Date: September 27, 2023 Subjective no events since admission to the PCU no seizures during the visit patient was sleepy but able to arouse and answer questions states he has had seizures since age 12 Physical Exam Physical Exam: gen - NAD skin - small hematoma middle of forehead from hitting his head during a seizure; skin broken in 2 places mouth - tongue bite louis present, MMM heart - RRR, s1 s2, no murmur lungs - CTA b/l abd - soft NT ND BS+ ext - no edema, pulses 2+ b/l Results & Data Results & Data Vital Signs (Past 12 Hours) Vital Signs Temp Pulse Pulse Resp BP BP Pulse Ox 09/27/23 10:30 36.5 C 56 L 18 108/85 98 09/27/23 07:30 36.6 C 59 L 18 116/81 99 09/27/23 06:15 36.6 C 72 16 109/69 97 09/27/23 05:30 92 H 18 123/64 98 09/27/23 05:00 78 13 118/68 96 09/27/23 04:31 92 H 16 177/94 H 98 09/27/23 04:12 69 16 120/83 98 09/27/23 03:55 53 L 09/27/23 03:41 37 C 54 L 18 122/84 98 O2 Del Method 09/27/23 10:30 Room Air 09/27/23 07:30 Room Air 09/27/23 06:15 Room Air 09/27/23 05:30 09/27/23 05:00 09/27/23 04:31 09/27/23 04:12 09/27/23 03:55 09/27/23 03:41 Room Air Laboratory Results Laboratory Results - last 24 hr 09/27/23 09/27/23 09/27/23 03:55 06:37 11:55 WBC 5.03 RBC 4.69 L Hgb 14.2 Hct 43.0 MCV 91.7 MCH 30.3 MCHC 33.0 RDW Std Deviation 42.0 RDW Coeff of Jorge 12.5 Plt Count 170 MPV 11.8 Immature Gran % (Auto) 0.4 Neut % (Auto) 53.3 Lymph % (Auto) 32.8 [place] % (Auto) 8.5 Eos % (Auto) 4.8 Baso % (Auto) 0.2 Neut # (Auto) 2.68 Lymph # (Auto) 1.65 [place] # (Auto) 0.43 Eos # (Auto) 0.24 Baso # (Auto) 0.01 Immature Gran # (Auto) 0.02 Sodium 139 Potassium 4.0 Chloride 106 Carbon Dioxide 28 Anion Gap 5 BUN 10 Creatinine 0.94 Est Cr Clr Drug Dosing 96.0 Est GFR ( Amer) 113.0 Est GFR (Non-Af Amer) 97.5 BUN/Creatinine Ratio 10.6 Glucose 95 Calcium 9.4 Magnesium 1.9 Total Bilirubin 0.7 AST 15 ALT 11 Alkaline Phosphatase 68 Total Creatine Kinase 96 Total Protein 7.0 Albumin 4.4 Globulin 2.6 Albumin/Globulin Ratio 1.7 Urine Color Yellow Urine Appearance Clear Urine pH 6.5 Ur Specific Stafford 1.014 Urine Protein Negative Urine Glucose (UA) Negative Urine Ketones Negative Urine Blood Negative Urine Nitrite Negative Urine Bilirubin Negative Urine Urobilinogen Negative Ur Leukocyte Esterase Negative Nasal Screen MRSA (PCR) Negative Urine Opiates Screen Neg Ur Methadone, Qual Neg Urine Barbiturates Neg Levetiracetam Pending Ur Phencyclidine (PCP) Neg U Amphetamin/Meth Scrn Neg MDMA (Ecstasy) Screen Neg U Benzodiazepines Scrn Neg Ur Cocaine Metabolite Neg U Marijuana (THC) Screen Neg Diagnostic Findings Head CT 09/27/23 03:44 Exam(s): CT HEAD Without Contrast EXAM: CT Head Without Intravenous Contrast CLINICAL HISTORY: Seizure. TECHNIQUE: Axial computed tomography images of the head/brain without intravenous contrast. CTDI is 61.67 mGy and DLP is 999.06 mGy-cm. Automated exposure control was utilized for the study. A dose lowering technique was utilized adhering to the principles of ALARA. COMPARISON: CT head without contrast dated 08/11/2022 FINDINGS: Brain: Unremarkable. No hemorrhage. No significant white matter disease. No edema. Ventricles: Unremarkable. No ventriculomegaly. Bones/joints: Unremarkable. No acute fracture. Soft tissues: No significant overlying soft tissue abnormality. The previously noted prominent contusive changes left anteriorly have resolved. Sinuses: Unremarkable as visualized. No acute sinusitis. Mastoid air cells: Unremarkable as visualized. No mastoid effusion. IMPRESSION: No acute intracranial process identified. Electronically signed by: Sandeep Mabry MD 09/27/23 04:47 AM PG Care Time/CCT Total # of Minutes Spent Total Time Spent with Patient: Total time spent is greater than 50% in coordination of care (as documented) at patient's floor/unit and/or counseling patient: Coding Level of Care Code None Diagnoses Seizure R56.9 Seizure disorder G40.909 Head injury S09.90XA
[2023-09-27 12:29] LABS: Appearance Urine Clear (Clear); Bilirubin Urine Negative (Negative); Blood Urine Negative (Negative); Color Urine Yellow; Glucose Urine UA Negative (Negative); Ketones Urine Negative (Negative); Leukocyte Esterase Urine Negative (Negative); Nitrite Urine Negative (Negative); Protein Urine Negative (Negative); Specific Gravity Urine 1.014 (1.000-1.030); Urobilinogen Urine Negative (Negative); pH Urine 6.5 (4.5-7.5)
[2023-09-27 13:01] LABS: Amphetamines+Metham, Urine Neg (Neg); Barbiturates, Urine Neg (Neg); Benzodiazepine, Urine Neg (Neg); Cocaine, Urine Neg (Neg); MDMA (Ecstacy), Urine Neg (Neg); Marijuana, Urine Neg (Neg); Methadone, Urine Neg (Neg); Opiate, Urine Neg (Neg); Phencyclidine, Urine Neg (Neg)
[2023-09-27] MEDS: DIPHTHER/TETAN/PERTUS Vaccine (Tdap, Adol/Adult) 0.5mL IM ONE (13:19)
[2023-09-27] MEDS: MUPIROCIN 2% OINT 22 GM TUBE EXT SCH (13:21)
[2023-09-27] MEDS: levETIRAcetam IV 750 MG in 0.9 % SODIUM CHLORIDE 100 ML IV SCH (16:25)
[2023-09-28] MEDS: levETIRAcetam 250 MG TAB PO SCH (08:47)
--- NOTE | 2023-09-28 10:38 | Discharge Summary ---
Date of Service date of admission - September 27, 2023 date of discharge - September 28, 2023 Admission HPI Per Admitting Provider The patient is a 43-year-old male with a past medical history including seizure disorder, Dilantin overdose and toxicity, who presents to the emergency department with 2 seizures while at the long term, and a third seizure while in the ED. He was felt to not be taking his Keppra dosing as directed, and was given a loading dose of Keppra 1000 mg, followed by 2000 mg IV per neurology recommendation while in the ED. Principal Diagnosis 1. Recurrent seizures due to known seizure disorder 2. Suspected noncompliance with anti-epileptic medication 3. Head injury due to recurrent seizures 4. Small forehead hematoma due to head injury; CT head negative 5. Tetanus booster given - 09/27/23 Discharge Exam gen - NAD, awake/alert, oriented skin - small hematoma middle of forehead from hitting his head during a seizure; minor skin breakage over the hematoma mouth - tongue bite louis present distal tongue but improving, MMM heart - RRR, s1 s2, no murmur lungs - CTA b/l abd - soft NT ND BS+ ext - no edema, pulses 2+ b/l neuro - strength 5/5 x 4 exts; no facial droop; speech fluent/clear Discharge Data Allergies Allergy/AdvReac Type Severity Reaction Status Date / Time No Known Allergies Allergy Unverified 11/01/20 18:16 Vaccinations TDaP - 09/27/23 Consultations [facility] Neurology Ordered Studies Head CT 09/27/23 03:44 Exam(s): CT HEAD Without Contrast EXAM: CT Head Without Intravenous Contrast CLINICAL HISTORY: Seizure. TECHNIQUE: Axial computed tomography images of the head/brain without intravenous contrast. CTDI is 61.67 mGy and DLP is 999.06 mGy-cm. Automated exposure control was utilized for the study. A dose lowering technique was utilized adhering to the principles of ALARA. COMPARISON: CT head without contrast dated 08/11/2022 FINDINGS: Brain: Unremarkable. No hemorrhage. No significant white matter disease. No edema. Ventricles: Unremarkable. No ventriculomegaly. Bones/joints: Unremarkable. No acute fracture. Soft tissues: No significant overlying soft tissue abnormality. The previously noted prominent contusive changes left anteriorly have resolved. Sinuses: Unremarkable as visualized. No acute sinusitis. Mastoid air cells: Unremarkable as visualized. No mastoid effusion. IMPRESSION: No acute intracranial process identified. Electronically signed by: aSndeep Mabry MD 09/27/23 04:47 AM Hospital Course (1) Seizure: Multiple seizures likely due to inconsistent use of keppra back at the long term.Ppatient dislikes the keppra due to side effects (stomach upset, etc). Suspect keppra level will return low when it does return. the level has been sent and is pending at time of discharge. CT head at admission was negative for acute findings. Lab work was unremarkable. There was no evidence of any infectious process. s/p keppra load of 3000mg IV given in the ER at time of presentation (had an additional seizure in the ER). Following admission to the telemetry unit no additional seizures were observed. He was seen in consult by [facility] neurology - Dr Milton Rodrigues. Again the patient voiced that he didn't like the keppra due to perceived association of the keppra causing stomach upset. Thus, neurology advised the following - * adding Depakote ER 500mg daily * take keppra 750mg twice daily x 7 days, then reduce to 500mg BID thereafter (this was done as a courtesy to the patient given his c/o dyspepsia) Per neurology EEG and MRI brain could be deferred as his neurological exam was normal, CT head was negative, and his seizure disorder dates back to his teenage years. Advise f/u with neurology in 1 month for recheck of seizure disorder. Check LFTs in 1 week due to institution of Depakote ER. (2) Seizure disorder: long-standing, dating back to age 12 see #1 above (3) Head injury: due to seizure small forehead hematoma with some abrasions bactroban TID to the abrasions x 5 days upon return to long term he doesn't recall date of last TDaP he hit his head against a metal bunk bed at the long term Thus, on 09/27/23, gave TDaP booster x 1 without incident Total Time Total Time Spent Total Time Spent (In Minutes): 35 Discharge Plan Discharge Items [facility] Disposition: [facility] Reason For Visit: RECURRENT SEIZURES Discharge Diagnosis: 1. Recurrent seizures due to known seizure disorder 2. Suspected noncompliance with anti-epileptic medication 3. Head injury due to recurrent seizures 4. Small forehead hematoma due to head injury; CT head negative 5. Tetanus booster given - 09/27/23 Condition on Discharge: Good Activity: Resume your previous activity Non-emergency contact: Primary Care Provider Call non-emergency contact if: you have any medication questions Follow-up/Referrals: Neo [facility] [Primary Care Provider] - Diet: Regular Addtl Attending Provider Instructions: Mr Olsen was hospitalized due to recurrent seizures (at least 2 at the long term, and 1 in our emergency room). He was loaded with IV keppra. Seizures stopped following such. Suspect noncompliance with oral keppra is the causing of recurrent seizures. Keppra level was sent but is pending at time of discharge. He was seen by [facility] Neurology. Patient expressed that he felt his keppra causes dyspepsia/stomach upset. Thus, neurology advised the following -- 1. keppra 750mg twice daily x 7 days, THEN reduce keppra to 500mg twice daily and continue on this dose thereafter 2. depakote ER - 500mg once daily every day 3. neurology follow-up in 1 month to recheck status of seizures 4. LFTs in 7-10 days due to institution of depakote Patient was given TDaP (Adacel) booster x 1 on 09/27/23 due to hitting head on a metal object at the long term with breakage of the skin. Pending Studies at Discharge: No Stand-Alone Forms: My [facility] Skilled Items Patient informed of condition?: Yes Discharge Level of Care: Other Communicable Disease: No Discharge Prognosis: Stable Lines: None Urinary Catheter: No Medications and DC Order Prescriptions: New divalproex 500 mg Tablet Extended Release 24 Hr 500 mg PO DAILY Qty: 30 2RF mupirocin 2 % Ointment 1 applic EXT TID 5 Days Qty: 1 0RF Rx Instructions: apply to forehead abrasions (overlying his hematoma) Continued cholecalciferol (vitamin D3) [Vitamin D3] 25 mcg (1,000 unit) Capsule 25 mcg PO DAILY Changed levetiracetam 500 mg tablet 500 mg PO DIRECTED Qty: 60 2RF Rx Instructions: 750mg PO BID x 1 week, then reduce to 500mg PO BID thereafter. Discontinued levetiracetam [Keppra] 1,000 mg Tablet 1,000 mg PO BID Rx Instructions: WITH X1 500MG TAB BID Discharge Orders: Discharge Order (Routine); Ordered 09/28/23 Ordered By: Bharath Riuz Admission Data Admit Date/Time: 09/27/23 12:23 Attending Provider: Bharath Ruiz Admit Provider: Bharath Ruiz Primary Care Provider: Neo [facility] Other Providers: Mp Adkins; Milton Rodrigues Coding Level of Care Code 20082 INP/OBS DISCH >30 MIN Diagnoses Seizure R56.9 Seizure disorder G40.909 Head injury S09.90XA
== END 2023-09-28 13:37 | DRG 101 ==
LOC: 2E 03:37 → ED 03:37 → SUATTDRO 05:24 → 2E 06:07